=== PATIENT | female | born 1970 | race Two or more races ===

== ENCOUNTER 2018-02-28 22:00 | Inpatient (IN) | payer SELFPAY ==
[~2018-02-28] VITALS: Ht 154.9 cm; Wt 69.8 kg
[2018-02-28] MEDS ORDERED: cloNIDine HCL 0.1 MG TAB PO ONE (23:15)
[2018-03-01] MEDS ORDERED: ASPirin 81 mg TAB PO ONE
[2018-03-01 00:42] LABS: Eosinophils % (auto) 1.6 % (0.0-7.0); Hematocrit 41.3 % (36.0-46.0); Hemoglobin 13.6 g/dL (12.2-16.2); Lymphocytes % (auto) 23.6 % (10.0-50.0); Mean Corpuscular Volume 82.3 fL (80.0-100.0); Monocytes % (auto) 9.2 % (0.0-12.0); Neutrophils % (auto) 64.6 % (37.0-80.0); Nucleated Red Blood Cells % 0.1 %; Red Blood Cells 5.01 10^6/uL (4.0-5.20); White Blood Cell 6.2 10^3/uL (4.4-10.8)
[2018-03-01 00:43] LABS: Mean Corpuscular Hemoglobin 27.1 pg (28.0-32.0); Mean Corpuscular Hgb Conc. 32.9 g/dL (32.0-36.0); Platelet Count (auto) 132 10^3/uL (140-450)
[2018-03-01 00:44] LABS: Basophils # (auto) 0.1 uL; Eosinophils # (auto) 0.1 uL; Lymphocytes # (auto) 1.5 uL; Monocytes # (auto) 0.6 uL
[2018-03-01 00:45] LABS: Alanine Aminotransferase 19 U/L (13-56); Alkaline Phosphatase 109 U/L (45-117); Anion Gap 7 (5-15); Aspartate Aminotransferase 19 U/L (15-37); BUN/Creatinine Ratio 12.5; Blood Urea Nitrogen 10 mg/dL (7-18); Calcium 8.6 mg/dL (8.5-10.1); Carbon Dioxide 26 mmol/L (21-32); Chloride 107 mmol/L (98-107); GFR African American 98 mL/min; GFR Non-African American 81 mL/min; Glucose 125 mg/dL (74-106); Potassium 3.7 mmol/L (3.5-5.1); Sodium 140 mmol/L (136-145)
[2018-03-01 00:46] LABS: Bilirubin, Total 0.3 mg/dL (0.2-1.0); Total Protein 7.1 g/dL (6.4-8.2)
[2018-03-01 00:47] LABS: INR 0.95 (0.9-1.15); Partial Thromboplastin Time 25.9 sec (22.64-33.71); Prothrombin Time 10.4 sec (9.37-12.3)
[2018-03-01] MEDS ORDERED: LABETALOL HCL 5 MG/ML ML 20ML VIAL IV PRN ×2 (03:15→15:00)
[2018-03-01] MEDS ORDERED: ONDANSETRON HCL 4 MG/2 ML VIAL IV PRN (03:15)
[2018-03-01] MEDS ORDERED: MORPHINE SULFATE 8mg/ml INJ SDV IV PRN ×2 (03:15→05:45)
[2018-03-01] MEDS ORDERED: ACETAMINOPHEN 500 MG TAB PO PRN (03:15)
[2018-03-01 05:27] LABS: Basophils # (auto) 0.1 uL; Basophils % (auto) 1.2 % (0.0-2.0); Eosinophils # (auto) 0.1 uL; Eosinophils % (auto) 1.8 % (0.0-7.0); Hematocrit 38.9 % (36.0-46.0); Hemoglobin 13.3 g/dL (12.2-16.2); Lymphocytes # (auto) 1.5 uL; Lymphocytes % (auto) 23.6 % (10.0-50.0); Mean Corpuscular Hemoglobin 27.8 pg (28.0-32.0); Mean Corpuscular Hgb Conc. 34.1 g/dL (32.0-36.0); Mean Corpuscular Volume 81.6 fL (80.0-100.0); Monocytes # (auto) 0.8 uL; Monocytes % (auto) 12.4 % (0.0-12.0); Neutrophils # (auto) 3.8 uL; Platelet Count (auto) 119 10^3/uL (140-450); Red Blood Cells 4.77 10^6/uL (4.0-5.20); Red Cell Distribution Width 15.6 % (11.8-14.3); White Blood Cell 6.2 10^3/uL (4.4-10.8)
[2018-03-01] MEDS ORDERED: NITROGLYCERIN 0.4 MG SL TAB SL PRN (05:45)
[2018-03-01 05:46] LABS: Potassium 3.9 mmol/L (3.5-5.1)
[2018-03-01 05:53] LABS: BUN/Creatinine Ratio 15.9; Calcium 8.6 mg/dL (8.5-10.1)
[2018-03-01 05:55] LABS: Cholesterol 187 mg/dL (< 200); HDL Cholesterol 39 mg/dL (40-59); LDL Cholesterol 140 mg/dL (< 100); Triglycerides 112 mg/dL (< 150)
[2018-03-01 08:52] VITALS: BP 127/86
[2018-03-01 09:02] VITALS: BP 127/86
[2018-03-01] MEDS: ASPirin 81 mg TAB PO SCH (09:59)
[2018-03-01] MEDS: ENOXAPARIN SOD 40 MG/0.4 ML SYRINGE SC SCH (09:59)
[2018-03-01] MEDS ORDERED: ENOXAPARIN SOD 30 MG/0.3 ML SYRINGE SC SCH (10:00)
[2018-03-01] MEDS ORDERED: ASPirin 81 mg TAB PO SCH (10:00)
[2018-03-01 12:42] VITALS: BP 160/94
[2018-03-01] MEDS ORDERED: LORazepam 2MG/ML-1ML VIAL IV ONE (14:00)
[2018-03-01] MEDS ORDERED: BENA20TA14 PO (14:23)
[2018-03-01] MEDS ORDERED: LISINOPRIL 20 MG TAB PO ONE (15:00)
[2018-03-01 17:01] VITALS: BP 158/79
[2018-03-01] MEDS: ATORVASTATIN 20 MG TAB PO SCH (21:22)
[2018-03-01 22:00] VITALS: BP 157/82
[2018-03-02 05:00] VITALS: BP 129/86
[2018-03-02 05:53] LABS: Basophils # (auto) 0 uL; Basophils % (auto) 0.5 % (0.0-2.0); Eosinophils # (auto) 0.1 uL; Eosinophils % (auto) 1.4 % (0.0-7.0); Hematocrit 41.5 % (36.0-46.0); Hemoglobin 13.7 g/dL (12.2-16.2); Lymphocytes # (auto) 1.5 uL; Lymphocytes % (auto) 24.6 % (10.0-50.0); Mean Corpuscular Hgb Conc. 32.9 g/dL (32.0-36.0); Mean Corpuscular Volume 81.9 fL (80.0-100.0); Monocytes # (auto) 0.5 uL; Monocytes % (auto) 8.6 % (0.0-12.0); Neutrophils # (auto) 3.9 uL; Neutrophils % (auto) 64.9 % (37.0-80.0); Nucleated Red Blood Cells % 0.1 %; Platelet Count (auto) 142 10^3/uL (140-450); Red Blood Cells 5.07 10^6/uL (4.0-5.20); Red Cell Distribution Width 15.4 % (11.8-14.3); White Blood Cell 6.1 10^3/uL (4.4-10.8)
[2018-03-02 06:00] VITALS: BP 158/95
[2018-03-02 06:14] LABS: BUN/Creatinine Ratio 13.8; Calcium 8.7 mg/dL (8.5-10.1); Magnesium 2.2 mg/dL (1.6-2.6); Potassium 3.7 mmol/L (3.5-5.1)
[2018-03-02 06:38] LABS: Urine Bacteria NONE SEEN /hpf (None Seen); Urine Blood Negative /uL (Negative); Urine Mucus FEW (None Seen); Urine Specific Gravity 1.021 (1.001-1.035); Urine WBC 2 /hpf (0 - 5)
[2018-03-02 09:00] VITALS: BP 158/95
[2018-03-02] MEDS: ASPirin 81 mg TAB PO SCH (09:22)
[2018-03-02] MEDS: LISINOPRIL 20 MG TAB PO SCH (09:23)
[2018-03-02] MEDS: ENOXAPARIN SOD 40 MG/0.4 ML SYRINGE SC SCH (09:49)
[2018-03-02] MEDS: amLODIPine BESYLATE 5 MG TAB PO SCH (11:57)
[2018-03-02 13:00] VITALS: BP 155/92
[2018-03-02 17:00] VITALS: BP 138/77
[2018-03-02 22:13] VITALS: BP 149/92
[2018-03-02] MEDS: ATORVASTATIN 20 MG TAB PO SCH (22:21)
[2018-03-03 05:30] VITALS: BP 137/87
[2018-03-03 08:55] VITALS: BP 145/82
[2018-03-03] MEDS: amLODIPine BESYLATE 5 MG TAB PO SCH (09:53)
[2018-03-03] MEDS: ASPirin 81 mg TAB PO SCH (09:53)
[2018-03-03] MEDS: LISINOPRIL 20 MG TAB PO SCH (09:54)
[2018-03-03] MEDS: ENOXAPARIN SOD 40 MG/0.4 ML SYRINGE SC SCH (09:54)
[2018-03-03 13:00] VITALS: BP 149/79
[2018-03-03 16:52] VITALS: BP 149/82
[2018-03-03 17:10] VITALS: BP 145/82
== END 2018-03-03 18:25 | disposition home or self-care (01) | DRG 65 ==
LOC: ER 22:00 → TELE 22:01 → TELE-WESTW 03-01 07:41
PROVIDERS: ADMIT Nurse Practitioner Family; ATTEND Internal Medicine
DX: I63.9 Cerebral infarction, unspecified (principal); G81.94 Hemiplegia, unspecified affecting left nondominant side; E78.5 Hyperlipidemia, unspecified; I10 Essential (primary) hypertension; Z91.14 Patient's other noncompliance with medication regimen
CPT/HCPCS: 36415; 70450; 70551; 80048; 80053; 80061; 81001; 83735; 84443; 84484; 85025; 85610; 85730; 92610; 93005; 93306; 93886; 97116; 97530

== ENCOUNTER 2019-11-07 11:50 | Emergency (ER) | payer MEDICAID, OTHER ==
[~2019-11-07] VITALS: Ht 152.4 cm; Wt 71.7 kg
[~2019-11-07 11:50] MED LIST: BENA20TA14 PO
[2019-11-07] MEDS ORDERED: cloNIDine HCL 0.1 MG TAB ONE (12:06)
[2019-11-07] MEDS ORDERED: methylPREDNISolone SOD SUCC 125 MG/2 ML VL IV ONE (12:15)
[2019-11-07] MEDS ORDERED: ALBUTEROL SULF 2.5 MG/0.5ML(0.5%) NEB SOLN NEB ONE (12:15)
[2019-11-07] MEDS ORDERED: cloNIDine HCL 0.1 MG TAB PO ONE (12:15)
[2019-11-07] MEDS ORDERED: IPRATROPIUM BROM 0.5 MG/2.5ML INH SOL NEB ONE (12:15)
[2019-11-07] MEDS ORDERED: cefTRIAXone 1GM/50ML D5W 50 ML IV ONE (12:30)
[2019-11-07 12:43] LABS: Basophils # (auto) 0 uL; Basophils % (auto) 0.7 % (0.0-2.0); Eosinophils # (auto) 0.5 uL; Hemoglobin 14.5 g/dL (12.2-16.2); Lymphocytes # (auto) 1.5 uL; Neutrophils # (auto) 3.9 uL
[2019-11-07 12:45] LABS: Eosinophils % (auto) 8.2 % (0.0-7.0); Hematocrit 43.9 % (36.0-46.0); Lymphocytes % (auto) 22.5 % (10.0-50.0); Mean Corpuscular Hemoglobin 26.9 pg (28.0-32.0); Mean Corpuscular Hgb Conc. 33.1 g/dL (32.0-36.0); Mean Corpuscular Volume 81.3 fL (80.0-100.0); Monocytes # (auto) 0.6 uL; Monocytes % (auto) 9.4 % (0.0-12.0); Neutrophils % (auto) 59.2 % (37.0-80.0); Nucleated Red Blood Cells % 0.1 %; Platelet Count (auto) 151 10^3/uL (140-450); Red Blood Cells 5.41 10^6/uL (4.0-5.20); White Blood Cell 6.6 10^3/uL (4.4-10.8)
[2019-11-07 12:49] VITALS: BP 141/87
[2019-11-07 13:02] LABS: Albumin 2.9 g/dL (3.4-5.0); Anion Gap 2 (5-15); Blood Urea Nitrogen 13 mg/dL (7-18); Calcium 8.9 mg/dL (8.5-10.1); Carbon Dioxide 30 mmol/L (21-32); Chloride 112 mmol/L (98-107); GFR African American 131 mL/min; GFR Non-African American 108 mL/min; Glucose 86 mg/dL (74-106); Potassium 4.1 mmol/L (3.5-5.1); Sodium 144 mmol/L (136-145)
[2019-11-07 13:07] LABS: Alanine Aminotransferase 25 U/L (13-56); Alkaline Phosphatase 152 U/L (45-117); Aspartate Aminotransferase 21 U/L (15-37); Bilirubin, Total 0.3 mg/dL (0.2-1.0); Total Protein 7.3 g/dL (6.4-8.2)
[2019-11-07] MEDS ORDERED: IOHEXOL 350 MG/ML 100ML IJ ONE (13:13)
== END 2019-11-07 15:17 | disposition home or self-care (01) ==
LOC: ER 11:50
DX: R06.02 Shortness of breath (principal); R07.2 Precordial pain; I10 Essential (primary) hypertension; Z86.73 Personal history of transient ischemic attack (TIA), and cerebral infarction without residual deficits; E78.5 Hyperlipidemia, unspecified
CPT/HCPCS: 36415; 71046; 71275; 80053; 83605; 84484; 85025; 87040; 93005; 94640; 96365; 96375; 99284; J0696; J2930; J7611; J7644; Q9967

== ENCOUNTER 2023-08-17 15:10 | Inpatient (IN) | payer MEDICAID ==
[~2023-08-17] VITALS: Ht 154.9 cm; Wt 70.0 kg
[~2023-08-17 15:10] MED LIST changes: +BENA-36 PO; -BENA20TA14 PO
[2023-08-17] MEDS ORDERED: LABETALOL HCL 5 MG/ML 4ML SYRINGE IV ONE ×3 (15:30→17:45)
[2023-08-17 16:00] VITALS: PULSE 83; RESP 17; O2SAT 96
[2023-08-17 17:06] LABS: Basophils # (auto) 0.1 10 ^3/uL (0-0.2); Basophils % (auto) 0.9 % (0.0-2.0); Eosinophils # (auto) 0.1 10 ^3/uL (0-0.8); Eosinophils % (auto) 1.3 % (0.0-7.0); Hematocrit 40.4 % (36.0-46.0); Hemoglobin 13.5 g/dL (12.2-16.2); Lymphocytes # (auto) 1.1 10 ^3/uL (0.4-5.4); Lymphocytes % (auto) 13.3 % (10.0-50.0); Mean Corpuscular Hemoglobin 27.9 pg (28.0-32.0); Mean Corpuscular Hgb Conc. 33.4 g/dL (32.0-36.0); Mean Corpuscular Volume 83.4 fL (80.0-100.0); Monocytes # (auto) 0.5 10 ^3/uL (0-1.3); Monocytes % (auto) 5.9 % (0.0-12.0); Neutrophils # (auto) 6.5 10 ^3/uL (1.6-8.6); Neutrophils % (auto) 78.6 % (37.0-80.0); Red Blood Cells 4.85 10^6/uL (4.0-5.20); Red Cell Distribution Width 14.9 % (11.8-14.3); White Blood Cell 8.3 10^3/uL (4.4-10.8)
[2023-08-17 17:18] LABS: Alanine Aminotransferase 15 U/L (7-40); Albumin 3.3 g/dL (3.2-4.8); Alkaline Phosphatase 130 U/L (46-116); Anion Gap 5 (5-15); Aspartate Aminotransferase 23 U/L (13-40); BUN/Creatinine Ratio 19.5 (10.0-20.0); Blood Urea Nitrogen 25 mg/dL (9-23); Calcium 8.8 mg/dL (8.7-10.4); Carbon Dioxide 29 mmol/L (20-30); Chloride 106 mmol/L (98-107); Glucose 156 mg/dL (74-106); Magnesium 2.1 mg/dL (1.6-2.6); Potassium 4.3 mmol/L (3.5-5.1); Sodium 140 mmol/L (136-145)
[2023-08-17 17:19] LABS: Bilirubin, Total 0.5 mg/dL (0.2-1.0); Total Protein 5.7 g/dL (5.7-8.2)
[2023-08-17 17:22] LABS: INR 0.98 (0.9-1.15); Partial Thromboplastin Time 27.4 SEC (24.5-34.5); Prothrombin Time 10.3 sec (9.3-11.8)
[2023-08-17 18:11] LABS: Urine Bacteria NONE SEEN /hpf (None Seen); Urine Blood TRACE /uL (Negative); Urine Clarity Clear (Clear); Urine Color Colorless (Yellow); Urine Protein, UAD 3+ (Negative); Urine Specific Gravity 1.009 (1.001-1.035); Urine Urobilinogen Normal (Negative); Urine WBC 44 /hpf (0 - 5); Urine pH 6.5 (5.0-8.0)
[2023-08-17 19:30] VITALS: PULSE 67; RESP 17; O2SAT 96
[2023-08-17] MEDS ORDERED: hydrALAZINE HCL 20 MG/ML VL IV ONE (19:30)
[2023-08-17] MEDS ORDERED: cefTRIAXone 1GM/50ML D5W 50 ML IV ONE (21:30)
[2023-08-17] MEDS ORDERED: DOCUSATE SOD 100 MG CAP PO PRN (21:30)
[2023-08-17] MEDS ORDERED: MORPHINE SULFATE INJ 2 MG/ml SYRG IV PRN ×2 (21:30)
[2023-08-17] MEDS ORDERED: ONDANSETRON HCL 4 MG/2 ML VIAL IV PRN (21:30)
[2023-08-17] MEDS ORDERED: ACETAMINOPHEN 325 MG TAB PO PRN (21:30)
[2023-08-17] MEDS ORDERED: NITROGLYCERIN 0.4 MG SL TAB SL PRN (21:30)
[2023-08-17] MEDS ORDERED: HYDROcodone-ACET 5/325MG TAB PO PRN (21:30)
[2023-08-17] MEDS ORDERED: ATOR40TA52 PO (21:35)
[2023-08-17] MEDS ORDERED: MONT-8 PO (21:35)
[2023-08-17] MEDS ORDERED: LEVALBUTEROL HCL 1.25 MG/3 ML NEB NEB SCH (22:00)
[2023-08-17] MEDS ORDERED: IPRATROPIUM BROM 0.5 MG/2.5ML INH SOL NEB ONE (22:00)
[2023-08-17] MEDS ORDERED: LEVALBUTEROL HCL 1.25 MG/3 ML NEB NEB PRN (22:00)
[2023-08-17] MEDS: ATORVASTATIN 20 MG TAB PO SCH (22:00)
[2023-08-17] MEDS: MONTELUKAST SODIUM 10 MG TAB PO SCH (22:00)
[2023-08-17] MEDS ORDERED: IPRATROPIUM BROM 0.5 MG/2.5ML INH SOL NEB PRN (22:00)
[2023-08-17] MEDS ORDERED: IPRATROPIUM BROM 0.5 MG/2.5ML INH SOL ONE (22:09)
[2023-08-17] MEDS ORDERED: LEVALBUTEROL HCL 1.25 MG/3 ML NEB ONE (22:09)
[2023-08-17] MEDS ORDERED: LEVALBUTEROL HCL 1.25 MG/3 ML NEB NEB ONE (22:45)
[2023-08-17 23:33] VITALS: PULSE 77; RESP 16; O2SAT 94
[2023-08-18] MEDS: SODIUM CHLORIDE 0.9% 1,000 ML IV SCH ×4 (00:13→14:40)
[2023-08-18 01:10] VITALS: BP 112/60; PULSE 77; RESP 16; TEMP 97.8; O2SAT 94
[2023-08-18] MEDS: LABETALOL HCL 5 MG/ML 4ML SYRINGE IV PRN ×3 (06:15→22:24)
[2023-08-18 06:54] LABS: Alanine Aminotransferase 12 U/L (7-40); Alkaline Phosphatase 98 U/L (46-116); Anion Gap 6 (5-15); Aspartate Aminotransferase 15 U/L (13-40); BUN/Creatinine Ratio 16.7 (10.0-20.0); Blood Urea Nitrogen 19 mg/dL (9-23); Calcium 8.6 mg/dL (8.5-10.1); Carbon Dioxide 27 mmol/L (20-30); Chloride 108 mmol/L (98-107); Cholesterol 177 mg/dL (< 200); Glucose 95 mg/dL (74-106); HDL Cholesterol 42 mg/dL (40-59); LDL Cholesterol 107 mg/dL (< 100); Potassium 3.8 mmol/L (3.5-5.1); Sodium 141 mmol/L (136-145); Triglycerides 123 mg/dL (< 150)
[2023-08-18 06:55] LABS: Bilirubin, Total 0.6 mg/dL (0.2-1.0); Total Protein 5.6 g/dL (5.7-8.2)
[2023-08-18 07:03] LABS: Basophils # (auto) 0.1 10 ^3/uL (0-0.2); Eosinophils # (auto) 0.2 10 ^3/uL (0-0.8); Eosinophils % (auto) 2.1 % (0.0-7.0); Hematocrit 38.6 % (36.0-46.0); Lymphocytes # (auto) 1.2 10 ^3/uL (0.4-5.4); Lymphocytes % (auto) 17.2 % (10.0-50.0); Mean Corpuscular Hemoglobin 27.8 pg (28.0-32.0); Mean Corpuscular Hgb Conc. 33.6 g/dL (32.0-36.0); Mean Corpuscular Volume 82.7 fL (80.0-100.0); Monocytes # (auto) 0.6 10 ^3/uL (0-1.3); Monocytes % (auto) 8.4 % (0.0-12.0); Neutrophils # (auto) 5.1 10 ^3/uL (1.6-8.6); Neutrophils % (auto) 71.3 % (37.0-80.0); Nucleated Red Blood Cells % 0.1 %; Red Blood Cells 4.67 10^6/uL (4.0-5.20); White Blood Cell 7.2 10^3/uL (4.4-10.8)
[2023-08-18 08:00] VITALS: PULSE 66; RESP 18; O2SAT 96
[2023-08-18 08:15] VITALS: O2SAT 94
[2023-08-18] MEDS: cefTRIAXone 1GM/50ML D5W 50 ML IV SCH (09:26)
[2023-08-18] MEDS: ENOXAPARIN SOD 30 MG/0.3 ML SYRINGE SC SCH (09:49)
[2023-08-18] MEDS: PANTOPRAZOLE 40 MG TAB PO SCH (09:49)
[2023-08-18] MEDS ORDERED: BENAZEPRIL HCL 10 MG TAB PO ONE (10:15)
[2023-08-18] MEDS ORDERED: NIFEdipine ER 30 MG TAB PO ONE (10:45)
[2023-08-18 19:55] VITALS: PULSE 73; RESP 17; O2SAT 96
[2023-08-18 20:20] VITALS: O2SAT 97
[2023-08-18] MEDS: MONTELUKAST SODIUM 10 MG TAB PO SCH (21:31)
[2023-08-18] MEDS: ATORVASTATIN 20 MG TAB PO SCH (21:32)
[2023-08-19] VITALS (8 sets, daily range): BP systolic 141–154; BP diastolic 69–93; PULSE 74–95; RESP 17–19; TEMP 98.2–98.6; O2SAT 94–97
[2023-08-19] MEDS ORDERED: hydrALAZINE HCL 20 MG/ML VL IV PRN (01:00)
[2023-08-19] MEDS: LABETALOL HCL 5 MG/ML 4ML SYRINGE IV PRN (06:52)
[2023-08-19] MEDS: cefTRIAXone 1GM/50ML D5W 50 ML IV SCH (08:49)
[2023-08-19] MEDS: PANTOPRAZOLE 40 MG TAB PO SCH (08:50)
[2023-08-19] MEDS: ENOXAPARIN SOD 30 MG/0.3 ML SYRINGE SC SCH (08:50)
[2023-08-19] MEDS ORDERED: NIFEdipine ER 30 MG TAB PO SCH (10:00)
[2023-08-19] MEDS ORDERED: BENAZEPRIL HCL 10 MG TAB PO SCH (10:00)
[2023-08-19] MEDS ORDERED: NIFE1TAB31 PO (13:31)
[2023-08-19] MEDS ORDERED: LEVO500T91 PO (13:33)
[2023-08-19] MEDS ORDERED: BENA-36 PO (13:58)
== END 2023-08-19 16:10 | disposition home or self-care (01) | DRG 199 ==
LOC: ER 15:10 → TELE 21:35 → TELE-WESTW 08-18 23:43
PROVIDERS: ADMIT Nurse Practitioner Family; ATTEND Internal Medicine
DX: I16.1 Hypertensive emergency (principal); N17.0 Acute kidney failure with tubular necrosis; N30.01 Acute cystitis with hematuria; E66.9 Obesity, unspecified; E78.5 Hyperlipidemia, unspecified; I10 Essential (primary) hypertension; J45.909 Unspecified asthma, uncomplicated; Z86.73 Personal history of transient ischemic attack (TIA), and cerebral infarction without residual deficits; Z82.49 Family history of ischemic heart disease and other diseases of the circulatory system; Z91.199 Patient's noncompliance with other medical treatment and regimen due to unspecified reason; Z68.29 Body mass index [BMI] 29.0-29.9, adult
CPT/HCPCS: 36415; 70450; 71045; 80053; 80061; 81001; 83735; 83880; 84443; 84484; 85025; 85610; 85730; 87086; 93005; 93306; 94640; 96365; 96375; 96376; 99291; G0378; J0696; J3490

== ENCOUNTER 2024-09-11 16:22 | Inpatient (IN) | payer MEDICAID ==
[~2024-09-11] VITALS: Ht 152.4 cm; Wt 65.7 kg
[~2024-09-11 16:22] MED LIST changes: +ATOR40TA52 PO; +LEVO500T91 PO; +MONT-8 PO; +NIFE1TAB31 PO
--- NOTE | 2024-09-11 16:34 | ED.PDOC ---
HPI Comments HPI: HPI: Poor Historian. 54-year-old female sent from urgent care due to hypertensive episode with the associated chest pain and headache. Patient states she has been noticing her blood pressure has been elevated in the last two days greater than 200. She states compliance with the blood pressure medications. Patient complains of some mild left-sided chest discomfort and some generalized headaches with her elevated blood pressure. At urgent Care her systolic blood pressure was 223/115. Patient states she has been under a lot of stress and grief lately because she just. Her sister three days ago. I was told by urgent care provider Dr. Nina that patient refused all interventions and refused ambulance and was brought here by her through private vehicle. PMHx: HTN, CVA, HLD PSHx: Allergies: No Known Allergies Initial Vital Signs: BP: 220/123 HR: 81 Temp: 98.0F SpO2: 95% RR: 20 REVIEW OF SYSTEMS: CONSTITUTIONAL: Denies acute: fever, diaphoresis, chills, HEAD: Denies acute: , photophobia Eyes: Denies acute: Double vision, vision loss, eye pain, eye discharge. EARS: Denies acute: tinnitus, hearing loss, ear discharge, ear pain, THROAT: Denies acute: sore throat, swelling, difficulty swallowing , pain with swallowing, change in voice. NECK: Denies acute: neck pain, neck swelling, stiff neck. HEART: Denies acute : palpitations, LUNGS: Denies acute: , wheezing, cough, hemoptysis ABDOMEN: Denies acute: abdominal pain, Nausea, Vomiting, diarrhea, melena , hematemesis, hematochezia SKIN: Denies acute: rash, redness, lesions, itchiness. EXTREMITIES: Denies acute: calf pain, numbness, tingling, weakness, denies pain in extremity. Denies acute: Low back pain. Neuro: Denies acute: focal neurological deficit, motor or sensory focal neurological deficit, tremors, seizure like activity, confusion, dizziness, change in mental status, loss of bowel or bladder function, cauda equina like symptoms. : Denies acute: dysuria, hematuria, flank pain, increase in urinary frequency. PSYCH: Denies acute: hallucination, suicidal ideation, homicidal ideation. FEMALE: Denies acute: abnormal vaginal bleeding, foul odor, unusual discharge. PHYSICAL EXAM: General: Moderate acute distress, awake and alert. Head: normocephalic, atraumatic. Neck: supple, trachea is midline, no swelling. Throat: Normal phonation. Eyes:, no erythema, no purulent discharge, no proptosis, no icterus. Heart: regular rate, regular rhythm, no significant murmur appreciated. Lungs: no apparent respiratory distress, Able to speak in full sentences. No wheezing, no rhonchi, no crackles. No stridors Clear to auscultation bilaterally. Abdomen: non tender to palpation, non distended, soft, no guarding, no rebound, + bowel sounds. Neuro: Awake, Alert, oriented to name, self, situation, follows commands GCS=15. Speech is normal. Skin: no petechia, no purpura, no cyanosis, non-pale, not jaundice. Lower extremities: --no - Pitting edema no deformity, no focal swelling, no calf TTP. Makes eye contact. moves all four extremities. Ambulating in the ED independently. Time Seen by MD: 16:24 Primary Care Provider: Evi Reviewed Notes: Medications, Allergies Allergies: Coded Allergies: NO KNOWN ALLERGIES (Unverified , 02/28/18) Home Meds Active Scripts Benazepril Hcl (Benazepril Hcl) 20 Mg Tab, 1 TAB PO DAILY, #30 TAB 5 Refills Prov:JUSTO GALINDO MD 08/19/23 Levofloxacin Hemihydrate (LEVAQUIN 500 MG) 500 Mg Tab, 1 TAB PO DAILY, #7 TAB Prov:JUSTO GALINDO MD 08/19/23 Nifedipine (Nifedipine Er) 30 Mg Tab, 2 TAB PO DAILY, #60 TAB 3 Refills Prov:JUSTO GALINDO MD 08/19/23 Reported Medications Montelukast Sodium (MONTELUKAST SODIUM) 10 Mg Tab, 1 TAB PO HS 08/17/23 Atorvastatin Calcium (ATORVASTATIN CALCIUM) 40 Mg Tab, 1 TAB PO HS 08/17/23 Information Source: Patient Mode of Arrival: Ambulatory Past Medical History PAST MEDICAL HISTORY: CVA, High Lipids, HTN Surgical History: MANAGER PERIOPERATIVE History: No Pertinent MANAGER PERIOPERATIVE History Family History Family History: Reviewed,noncontributory to illness Social History Smoker: Non-Smoker Alcohol: Denies ETOH Use Drugs: Denies Drug Use Lives In: Home Was a procedure done? Was a procedure done?: No CP Differential Dx Differential Diagnosis: N/A Differential Diagnosis: Other (DDX include renal disease, thyroid disease, electrolyte abnormality, increased salt intake, medications non-compliance, undiagnosed HTN, Hypertensive crisis, hypertensive urgency., drug toxicity.) Differential Diagnosis: Other (Ddx include but not limitied to gastritis, musculoskeletal pain, radiculopathy, atypical chest pain, dissection, aneurysm, ACS, unstable angina, hiatal hernia, GERD, anxiety, costochondritis, PE, pne umothroax, neoplasm, cardiac ischemia, drug abuse, anemia.) X-Ray, Labs, Meds, VS Vital Signs Date Time Temp Pulse Resp B/P (MAP) Pulse Ox O2 Delivery O2 Flow Rate FiO2 09/11/24 18:21 134/92 09/11/24 17:47 134/92 09/11/24 17:47 80 134/92 09/11/24 17:47 134/92 09/11/24 17:45 80 18 134/18 (56) 99 09/11/24 17:35 180/98 09/11/24 17:25 76 18 194/104 (134) 98 09/11/24 16:53 77 18 96 Room Air* 0 21 09/11/24 16:53 98.0 77 18 206/96 (132) 96 98.0 09/11/24 16:52 206/96 09/11/24 16:35 77 09/11/24 16:34 98.0 86 20 188/111 (136) 97 Lab Test 09/11/24 18:11 09/11/24 17:19 09/11/24 17:00 Range/Units Troponin I High Sensitivity 8 8 </=34 ng/L White Blood Count 11.3 H 4.4-10.8 10^3/uL Red Blood Count 4.95 4.0-5.20 10^6/uL Hemoglobin 13.4 12.2-16.2 g/dL Hematocrit 41.3 36.0-46.0 % Mean Corpuscular Volume 83.4 80.0-100.0 fL Mean Corpuscular Hemoglobin 27.2 L 28.0-32.0 pg Mean Corpuscular Hemoglobin Concent 32.6 32.0-36.0 g/dL Red Cell Distribution Width 15.3 H 11.8-14.3 % Platelet Count 234 140-450 10^3/uL Mean Platelet Volume 7.7 6.9-10.8 fL Neutrophils (%) (Auto) 78.2 37.0-80.0 % Lymphocytes (%) (Auto) 13.0 10.0-50.0 % Monocytes (%) (Auto) 6.1 0.0-12.0 % Eosinophils (%) (Auto) 2.2 0.0-7.0 % Basophils (%) (Auto) 0.5 0.0-2.0 % Neutrophils # (Auto) 8.9 H 1.6-8.6 10 ^3/uL Lymphocytes # (Auto) 1.5 0.4-5.4 10 ^3/uL Monocytes # (Auto) 0.7 0-1.3 10 ^3/uL Eosinophils # (Auto) 0.2 0-0.8 10 ^3/uL Basophils # (Auto) 0.1 0-0.2 10 ^3/uL Nucleated Red Blood Cells 0.0 % Sodium Level 139 136-145 mmol/L Potassium Level 4.8 3.5-5.1 mmol/L Chloride Level 104 98-107 mmol/L Carbon Dioxide Level 30 20-31 mmol/L Anion Gap 5 5-15 Blood Urea Nitrogen 27 H 9-23 mg/dL Creatinine 1.50 H 0.550-1.02 mg/dL Glomerular Filtration Rate Calc 41 >90 mL/min BUN/Creatinine Ratio 18.0 10.0-20.0 Serum Glucose 103 74-106 mg/dL Lactic Acid Level 1.1 0.4-2.0 mmol/L Calcium Level 9.2 8.7-10.4 mg/dL Total Bilirubin 0.5 0.2-1.0 mg/dL Aspartate Amino Transferase (AST) 20 13-40 U/L Alanine Aminotransferase (ALT) 16 7-40 U/L Alkaline Phosphatase 128 H 46-116 U/L B-Type Natriuretic Peptide 46.11 0-100 pg/mL Total Protein 6.3 5.7-8.2 g/dL Albumin 3.5 3.2-4.8 g/dL Urine Color Colorless Yellow Urine Clarity Clear Clear Urine pH 7.0 5.0-9.0 Urine Specific [place] 1.003 1.001-1.035 Urine Protein 2+ H Negative Urine Ketones Negative Negative Urine Blood Trace H Negative /uL Urine Nitrite Negative Negative Urine Bilirubin Negative Negative Urine Urobilinogen Normal Negative mg/dL Urine Leukocyte Esterase 1+ Negative /uL Urine RBC 1 0 - 4 /hpf Urine WBC 5 0 - 5 /hpf Urine Squamous Epithelial Cells None seen <5 /hpf Urine Bacteria Few H None Seen /hpf Urine Glucose Normal Normal mg/dL Current Medications Medications (Trade) Dose Ordered Sig/Valeriy Route Start Time Stop Time Status Last Admin Nitroglycerin (Ntrostat Sublingual) 0.4 mg ONCE ONCE SL 09/11/24 16:30 09/11/24 16:46 DC 09/11/24 16:52 Aspirin 325 mg ONCE ONCE PO 09/11/24 16:30 09/11/24 16:46 DC 09/11/24 16:52 Nitroglycerin (Ntrostat Sublingual) 0.4 mg ONCE ONCE SL 09/11/24 17:45 09/11/24 17:46 DC 09/11/24 17:35 [place] [id number] Ph: [phone] DIAGNOSTIC IMAGING Diagnostic Imaging Report : [id number] Signed PATIENT: NUSRAT CASTILLO ACCT: [id number] UNIT: [id number] : 1970 LOC: ER ROOM / BED: / AGE / SEX: 54 / F ADM STATUS: REG ER SERVICE 28 ORDERING PHYSICIAN: VIJAYA MCLEOD DO PROCEDURE(s): HWOCT - HEAD WITHOUT CONTRAST REASON: HTN, CARRILLO ORDER NUMBER(s): [id number], ACCESSION NUMBER(s): [id number] EXAM: CT Head Without Intravenous Contrast CLINICAL INDICATION: HTN, CARRILLO TECHNIQUE: Axial computed tomography images of the head/brain without intravenous contrast. This CT exam was performed using one or more of the following dose reduction techniques: automated exposure control, adjustment of the mA and/or kV according to patient size, and/or use of iterative reconstruction technique. RADIATION DOSE: CTDlvol= 51.5 mGy, DLP= 826.02 mGy-cm COMPARISON: CT HEAD WITHOUT CONTRAST on DOS: 08/17/23, CT ANGIO CHEST CONTRAST on DOS: 11/07/19 FINDINGS: BRAIN AND EXTRA-AXIAL SPACES: Unremarkable. No significant white matter disease. No acute intracranial hemorrhage, midline shift or mass effect. BONES/JOINTS: Unremarkable. No acute fracture. SOFT TISSUES: Unremarkable. SINUSES: Unremarkable as visualized. No acute sinusitis. MASTOID AIR CELLS: Unremarkable as visualized. No mastoid effusion. OTHER FINDINGS: . . . IMPRESSION: 1. No acute intracranial hemorrhage, midline shift or mass effect. 2. No significant change from the prior exam. HS:Y ATED BY: SHERRILL LEYVA MD DICTATED DATE/TIME: 09/11/241704 SIGNED BY: SHERRILL LEYVA MD SIGNED DATE/TIME: 09/11/241704 [place] [address] Ph: [phone] DIAGNOSTIC IMAGING Diagnostic Imaging Report : [id number] Signed PATIENT: NUSRAT CASTILLO ACCT: [id number] UNIT: [id number] : 1970 LOC: ER ROOM / BED: / AGE / SEX: 54 / F ADM STATUS: REG ER SERVICE 28 ORDERING PHYSICIAN: VIJAYA MCLEOD DO PROCEDURE(s): CXRP - CHEST PORTABLE REASON: cp ORDER NUMBER(s): [id number], ACCESSION NUMBER(s): [id number] EXAM: XR Chest, 1 View CLINICAL INDICATION: cp TECHNIQUE: Frontal view of the chest. COMPARISON: XY CHEST PORTABLE on DOS: 08/17/23 FINDINGS: LUNGS AND PLEURAL SPACES: Unremarkable. No consolidation. No pneumothorax. HEART: Unremarkable. No cardiomegaly. MEDIASTINUM: Unremarkable. Normal mediastinal contour. BONES/JOINTS: Unremarkable. No acute fracture. OTHER FINDINGS: . . . IMPRESSION: No acute cardiopulmonary process. HS:Y ATED BY: SHERRILL LEYVA MD DICTATED DATE/TIME: 09/11/241700 SIGNED BY: SHERRILL LEYVA MD SIGNED DATE/TIME: 09/11/241700 Time of 1ST Reevaluation: 16:54 Reevaluation 1ST: Unchanged Time of 2ND Reevaluation: 19:40 Reevaluation 2ND: Improved Patient Education/Counseling: Diagnosis, Treatment Family Education/Counseling: Diagnosis, Treatment Comments Patient presented with the above HPI.---cardiac and hypertension crisis---workup was initiated. patient was found with the above mentioned diagnosis. Patient was given: Nitroglycerin and aspirin, Rocephin for suspected UTI Patient ED course and VS have been stabilized. Patient has been reassessed in the ED and remained in a stable condition. Pertinent incidental findings were discussed with the patient and/or family. Patient/family voices understanding and is agreeable with plan. Patient has been observed in the ED adequate length of time to insure improvement/stability. patient was admitted to the medicine team for further evaluation and treatment of their presentation. Rule out ACS, better blood pressure control, All the reports of any imaging studies that were ordered by myself were reviewed by myself. Departure 1 Departure Time of Disposition: 17:49 Impression: Primary Impression: Hypertensive crisis Additional Impressions: Chest pain UTI (urinary tract infection) Disposition: ADMITTED INPATIENT Admit to: Tele Condition: Guarded Discharged With: Self Critical Care Note Critical Care Time?: Yes (35 min-critical care time only) Heart Score Heart Score: Heart Score Response (Comments) Value History Moderate Suspicious 1 EKG Normal 0 Age 45-64 1 Risk Factors 1 or 2 risk factors 1 Troponin Normal limit 0 Total 3 I personally scribed for VIJAYA MCLEOD DO ([email or web address]) on 09/11/24 at 16:34. Electronically submitted by Arnie Barbour ([email or web address]). I personally scribed for VIJAYA MCLEOD DO ([email or web address]) on 09/11/24 at 16:42. Electronically submitted by Arnie Barbour ([email or web address]). I personally scribed for VIJAYA MCLEOD DO ([email or web address]) on 09/11/24 at 17:58. Electronically submitted by Arnie Barbour ([email or web address]). VIJAYA MCLEOD DO Sep 11, 2024 16:34
[2024-09-11] MEDS: NITROGLYCERIN 0.4 MG SL TAB SL ONE ×3 (16:52→17:47)
[2024-09-11] MEDS: ASPirin 325 MG TAB PO ONE (16:52)
[2024-09-11 16:53] VITALS: PULSE 77; RESP 18; O2SAT 96
--- NOTE | 2024-09-11 17:04 | DVH ---
EXAM: XR Chest, 1 View CLINICAL INDICATION: cp TECHNIQUE: Frontal view of the chest. COMPARISON: XY CHEST PORTABLE on DOS: 08/17/23 FINDINGS: LUNGS AND PLEURAL SPACES: Unremarkable. No consolidation. No pneumothorax. HEART: Unremarkable. No cardiomegaly. MEDIASTINUM: Unremarkable. Normal mediastinal contour. BONES/JOINTS: Unremarkable. No acute fracture. OTHER FINDINGS: . . . IMPRESSION: No acute cardiopulmonary process. HS:Y
--- NOTE | 2024-09-11 17:07 | DVH ---
EXAM: CT Head Without Intravenous Contrast CLINICAL INDICATION: HTN, CARRILLO TECHNIQUE: Axial computed tomography images of the head/brain without intravenous contrast. This CT exam was performed using one or more of the following dose reduction techniques: automated exposure control, adjustment of the mA and/or kV according to patient size, and/or use of iterative reconstru ction technique. RADIATION DOSE: CTDlvol= 51.5 mGy, DLP= 826.02 mGy-cm COMPARISON: CT HEAD WITHOUT CONTRAST on DOS: 08/17/23, CT ANGIO CHEST CONTRAST on DOS: 11/07/19 FINDINGS: BRAIN AND EXTRA-AXIAL SPACES: Unremarkable. No significant white matter disease. No acute intracra nial hemorrhage, midline shift or mass effect. BONES/JOINTS: Unremarkable. No acute fracture. SOFT TISSUES: Unremarkable. SINUSES: Unremarkable as visualized. No acute sinusitis. MASTOID AIR CELLS: Unremarkable as visualized. No mastoid effusion. OTHER FINDINGS: . . . IMPRESSION: 1. No acute intracranial hemorrhage, midline shift or mass effect. 2. No significant change from the prior exam. HS:Y
[2024-09-11 17:38] LABS: Basophils # (auto) 0.1 10 ^3/uL (0-0.2); Basophils % (auto) 0.5 % (0.0-2.0); Eosinophils # (auto) 0.2 10 ^3/uL (0-0.8); Eosinophils % (auto) 2.2 % (0.0-7.0); Hematocrit 41.3 % (36.0-46.0); Hemoglobin 13.4 g/dL (12.2-16.2); Lymphocytes # (auto) 1.5 10 ^3/uL (0.4-5.4); Mean Corpuscular Hemoglobin 27.2 pg (28.0-32.0); Mean Corpuscular Hgb Conc. 32.6 g/dL (32.0-36.0); Mean Corpuscular Volume 83.4 fL (80.0-100.0); Monocytes # (auto) 0.7 10 ^3/uL (0-1.3); Monocytes % (auto) 6.1 % (0.0-12.0); Neutrophils # (auto) 8.9 10 ^3/uL (1.6-8.6); Neutrophils % (auto) 78.2 % (37.0-80.0); Platelet Count (auto) 234 10^3/uL (140-450); Red Blood Cells 4.95 10^6/uL (4.0-5.20); Red Cell Distribution Width 15.3 % (11.8-14.3); White Blood Cell 11.3 10^3/uL (4.4-10.8)
[2024-09-11 17:45] LABS: Urine Bacteria FEW /hpf (None Seen); Urine Blood TRACE /uL (Negative); Urine Clarity Clear (Clear); Urine Color Colorless (Yellow); Urine Protein, UAD 2+ (Negative); Urine Specific Gravity 1.003 (1.001-1.035); Urine Urobilinogen Normal (Negative); Urine WBC 5 /hpf (0 - 5)
[2024-09-11] MEDS: LABETALOL HCL 20 MG/4 ML VL IV ONE ×2 (17:47→22:00)
[2024-09-11 17:53] LABS: Alanine Aminotransferase 16 U/L (7-40); Albumin 3.5 g/dL (3.2-4.8); Alkaline Phosphatase 128 U/L (46-116); Anion Gap 5 (5-15); Aspartate Aminotransferase 20 U/L (13-40); Bilirubin, Total 0.5 mg/dL (0.2-1.0); Blood Urea Nitrogen 27 mg/dL (9-23); Calcium 9.2 mg/dL (8.7-10.4); Carbon Dioxide 30 mmol/L (20-31); Chloride 104 mmol/L (98-107); Glucose 103 mg/dL (74-106); Potassium 4.8 mmol/L (3.5-5.1); Sodium 139 mmol/L (136-145); Total Protein 6.3 g/dL (5.7-8.2)
[2024-09-11] MEDS: cefTRIAXone 1GM/50ML D5W 50 ML IV ONE (19:45)
[2024-09-11 21:15] VITALS: PULSE 67; RESP 20; O2SAT 98
[2024-09-11] MEDS ORDERED: ONDANSETRON HCL 4 MG/2 ML VIAL IV PRN (21:45)
[2024-09-11] MEDS ORDERED: LABETALOL HCL 20 MG/4 ML VL IV PRN (21:45)
[2024-09-11] MEDS ORDERED: MORPHINE SULFATE INJ 2 MG/ml SYRG IV PRN ×2 (21:45)
[2024-09-11] MEDS ORDERED: NITROGLYCERIN 0.4 MG SL TAB SL PRN (21:45)
[2024-09-11] MEDS ORDERED: ACETAMINOPHEN 325 MG TAB PO PRN (21:45)
[2024-09-11] MEDS: SODIUM CHLOR 0.9% PF (SALINE LOCK) 10ML VIAL/SYR IV SCH (22:08)
[2024-09-11] MEDS: ENOXAPARIN SOD 40 MG/0.4 ML SYRINGE SC SCH (22:29)
--- NOTE | 2024-09-11 23:41 | DVHHPRES ---
History of Present Illness Resident Creating Document: DIEUDONNE DEE RESIDENT History of Present Illness NUSRAT CASTILLO is 54 years old female with a PMH of HTN, CVA, HLD, asthma it to the ED with the chief complaints of high blood pressure since 2 days prior to admission. Patient reported she has been noticed that her blood pressure is more than 200, associated with severe headache and chest pressure which is substernal to left side with a nonradiating, nothing made it worse or better, prompted her to visit ED. patient had recent stressors, she lost her sister on Monday, lack of sleep, with a stressful events, despite taking antihypertensive medications still her blood pressure is very high. Patient went to urgent care, advised to go to ED. my assessment patient denies fever, nausea, vomiting, difficulty breathing, abdominal pain, palpitations, diaphoresis and other associated symptoms. Past Medical History HTN, CVA, HLD, asthma, prediabetes mellitus Past Surgical History Family History: None Past Social History Lives with . Denies smoking, alcohol and other drug abuse Review of Systems Constitutional: Yes: Other (Headache) Eyes: No: Pain, Vision change, Conjunctivae inflammation, Eyelid inflammation, Other, Redness Respiratory: SOB with excertion Cardiovascular: Chest Pain Gastrointestinal: No: Nausea, Vomiting, Abdominal Pain, Diarrhea, Constipation, Melena, Hematochezia, Other Genitourinary: No Dysuria, No Frequency, No Incontinence, No Hematuria, No Retention, No Other Musculoskeletal: No: other, neck pain, shoulder pain, arm pain, back pain, hand pain, leg pain, foot pain Skin: No: Rash, Lesions, Jaundice, Bruising, Other Neurological: No: Weakness, Numbness, Incoordination, Change in speech, Confusion, Seizures, Other Allergies: Coded Allergies: NO KNOWN ALLERGIES (Unverified , 02/28/18) Medications Current Medications Medications Dose Ordered Sig/Valeriy Route Start Time Stop Time Status Last Admin Dose Admin Sodium Chloride 10 ml Q8HR IV 09/11/24 22:00 09/11/24 22:08 10 ML Acetaminophen 325 mg Q4HP PRN PO 09/11/24 21:45 Ondansetron HCl 4 mg Q4HP PRN IV 09/11/24 21:45 Morphine Sulfate 2 mg Q4HPRN PRN IV 09/11/24 21:45 Enoxaparin Sodium 40 mg DAILY SC 09/11/24 21:45 09/11/24 22:29 40 MG Nitroglycerin 0.4 mg Q5MINP PRN SL 09/11/24 21:45 Morphine Sulfate 2 mg Q30M PRN IV 09/11/24 21:45 Labetalol HCl 10 mg Q2HPRN PRN IV 09/11/24 21:45 Exam Vital Signs Vital Signs Date Time Temp Pulse Resp B/P (MAP) Pulse Ox O2 Delivery O2 Flow Rate FiO2 09/11/24 22:00 72 180/67 09/11/24 20:14 19 80 09/11/24 16:53 Room Air* 0 21 09/11/24 16:53 98.0 98.0 Exam Pt is lying on bed General Appearance: Alert, Oriented X3, Cooperative, in mild distress HEENT: Atraumatic, Mucous membranes moist/pink Respiratory: Clear to auscultation, Normal air movement, No added sounds Cardiovascular: Regular rate, Normal S1, Normal S2, No murmurs Abdominal: Active bowel sounds, Soft, no distention, no tenderness Extremities: No edema, Normal pulses, No tenderness/swelling Skin: No Significant rash, except past surgical scars Neuro: Normal speech, sensorimotor deficits none Psych/Mental Status: Mental status NL, Mood NL Nurse was there as israelerone during examination Labs/Xrays Labs Test 09/11/24 20:42 09/11/24 17:19 09/11/24 17:00 Range/Units Troponin I High Sensitivity 9 </=34 ng/L White Blood Count 11.3 H 4.4-10.8 10^3/uL Red Blood Count 4.95 4.0-5.20 10^6/uL Hemoglobin 13.4 12.2-16.2 g/dL Hematocrit 41.3 36.0-46.0 % Mean Corpuscular Volume 83.4 80.0-100.0 fL Mean Corpuscular Hemoglobin 27.2 L 28.0-32.0 pg Mean Corpuscular Hemoglobin Concent 32.6 32.0-36.0 g/dL Red Cell Distribution Width 15.3 H 11.8-14.3 % Platelet Count 234 140-450 10^3/uL Mean Platelet Volume 7.7 6.9-10.8 fL Neutrophils (%) (Auto) 78.2 37.0-80.0 % Lymphocytes (%) (Auto) 13.0 10.0-50.0 % Monocytes (%) (Auto) 6.1 0.0-12.0 % Eosinophils (%) (Auto) 2.2 0.0-7.0 % Basophils (%) (Auto) 0.5 0.0-2.0 % Neutrophils # (Auto) 8.9 H 1.6-8.6 10 ^3/uL Lymphocytes # (Auto) 1.5 0.4-5.4 10 ^3/uL Monocytes # (Auto) 0.7 0-1.3 10 ^3/uL Eosinophils # (Auto) 0.2 0-0.8 10 ^3/uL Basophils # (Auto) 0.1 0-0.2 10 ^3/uL Nucleated Red Blood Cells 0.0 % Sodium Level 139 136-145 mmol/L Potassium Level 4.8 3.5-5.1 mmol/L Chloride Level 104 98-107 mmol/L Carbon Dioxide Level 30 20-31 mmol/L Anion Gap 5 5-15 Blood Urea Nitrogen 27 H 9-23 mg/dL Creatinine 1.50 H 0.550-1.02 mg/dL Glomerular Filtration Rate Calc 41 >90 mL/min BUN/Creatinine Ratio 18.0 10.0-20.0 Serum Glucose 103 74-106 mg/dL Lactic Acid Level 1.1 0.4-2.0 mmol/L Calcium Level 9.2 8.7-10.4 mg/dL Total Bilirubin 0.5 0.2-1.0 mg/dL Aspartate Amino Transferase (AST) 20 13-40 U/L Alanine Aminotransferase (ALT) 16 7-40 U/L Alkaline Phosphatase 128 H 46-116 U/L B-Type Natriuretic Peptide 46.11 0-100 pg/mL Total Protein 6.3 5.7-8.2 g/dL Albumin 3.5 3.2-4.8 g/dL Urine Color Colorless Yellow Urine Clarity Clear Clear Urine pH 7.0 5.0-9.0 Urine Specific [place] 1.003 1.001-1.035 Urine Protein 2+ H Negative Urine Ketones Negative Negative Urine Blood Trace H Negative /uL Urine Nitrite Negative Negative Urine Bilirubin Negative Negative Urine Urobilinogen Normal Negative mg/dL Urine Leukocyte Esterase 1+ Negative /uL Urine RBC 1 0 - 4 /hpf Urine WBC 5 0 - 5 /hpf Urine Squamous Epithelial Cells None seen <5 /hpf Urine Bacteria Few H None Seen /hpf Urine Glucose Normal Normal mg/dL Assessment/Plan Assessment/Plan # rule out ACS # chest pain likely due to hypertensive emergency vs ACS -troponins x3 were negative -EKG reviewed # hypertensive emergency -continuously monitor blood pressure -ordered head CT which showed no acute abnormalities -monitor for end-organ damage -currently on labetalol 10 mg p.r.n. -resumed home meds # FRANCOIS likely VMN likely due to hypertension emergency -monitor lab Lovenox for now No Gi ppx Cardiac diet Reconciled home meds Goals of care discussed with the patient and more than 27 minutes: Full code Case management discussed with Dr. Sanon, patient and nurse Plan discussed with: Patient My Orders Orders - DIEUDONNE DEE RESIDENT Procedure Category Date Status Time Admit ADMIT 09/11/24 Transmitted 21:45 Allergies LUIS 09/11/24 In Process 21:45 Code Status CODE 09/11/24 Transmitted 21:45 2 Gm Sodium Diet DIET 09/12/24 Transmitted Breakfast Sodium Chloride Lock PHA 09/11/24 In Process (Saline Lock Ns) 22:00 Acetaminophen Tablet PHA 09/11/24 In Process (Tylenol Tablet) 21:45 Ondansetron Hcl PHA 09/11/24 In Process (Zofran) 21:45 Complete Blood Count LAB 09/12/24 Verified 04:00 Comprehensive LAB 09/12/24 Verified Metabolic Panel 04:00 Cardiac DIET 09/12/24 Transmitted Diet-2gna,Lofat,Lochol Breakfast Morphine Sulfate PHA 09/11/24 In Process Injection 21:45 Enoxaparin Sodium PHA 09/11/24 In Process (Lovenox) 21:45 Nitroglycerin PHA 09/11/24 In Process Sublingual (Ntrostat 21:45 Morphine Sulfate PHA 09/11/24 In Process Injection 21:45 Oxygen By Nasal RT 09/11/24 Transmitted Cannula 21:45 Stat Ekg For Chest LUIS 09/11/24 In Process Pain 21:45 Notify Of Changes LUIS 09/11/24 In Process From Base 21:45 Wood Technologist For LUIS 09/11/24 In Process 24 Hours 21:45 Emergency Dysrhythmia LUIS 09/11/24 In Process Protocol 21:45 Rhythm Strips Once LUIS 09/11/24 In Process Every Shift 21:45 Labetalol Hcl PHA 09/11/24 In Process (Labetalol Hcl) 21:45 Nifedipine Er PHA 09/12/24 Logged (Procardia Xl 10:00 (Nf) Benazepril Hcl PHA 09/12/24 Logged 10:00 PTPTT LAB 09/12/24 Verified 04:00 Hemoglobin A1c LAB 09/11/24 Verified 23:38 Drug Screen LAB 09/11/24 Verified 23:38 Comprehensive LAB 09/11/24 Verified Metabolic Panel 23:38 Complete Blood Count LAB 09/11/24 Verified 23:38 Thyroid Stimulating LAB 09/11/24 Verified Hormone 23:38 Vitamin B12 LAB 09/11/24 Verified 23:38 Vitamin D, 25-Hydroxy LAB 09/11/24 Verified 23:38 DIEUDONNE DEE RESIDENT Sep 11, 2024 23:41
[2024-09-11 23:52] LABS: Basophils # (auto) 0.1 10 ^3/uL (0-0.2); Basophils % (auto) 0.8 % (0.0-2.0); Eosinophils # (auto) 0.2 10 ^3/uL (0-0.8); Eosinophils % (auto) 1.8 % (0.0-7.0); Hematocrit 37.3 % (36.0-46.0); Hemoglobin 12.5 g/dL (12.2-16.2); Lymphocytes # (auto) 1.6 10 ^3/uL (0.4-5.4); Lymphocytes % (auto) 14.5 % (10.0-50.0); Mean Corpuscular Hgb Conc. 33.5 g/dL (32.0-36.0); Mean Corpuscular Volume 83.4 fL (80.0-100.0); Monocytes # (auto) 0.7 10 ^3/uL (0-1.3); Monocytes % (auto) 6.4 % (0.0-12.0); Neutrophils # (auto) 8.4 10 ^3/uL (1.6-8.6); Neutrophils % (auto) 76.5 % (37.0-80.0); Platelet Count (auto) 203 10^3/uL (140-450); Red Blood Cells 4.47 10^6/uL (4.0-5.20); Red Cell Distribution Width 15.5 % (11.8-14.3)
[2024-09-12] VITALS (12 sets, daily range): BP systolic 129–166; BP diastolic 63–98; PULSE 70–85; RESP 14–19; TEMP 98.3–98.8; O2SAT 94–97
[2024-09-12 00:02] LABS: Amphetamine Screen, Urine Neg (NEGATIVE); Barbiturate Scree,Urine Neg (NEGATIVE); Benzodiazephine Screen, Urine Neg (NEGATIVE); Cannabinoid Screen, Urine Neg (NEGATIVE); Cocaine Screen, Urine Neg (NEGATIVE); Opiate Scree,Urine Neg (NEGATIVE); Phencyclidine Screen, Urine Neg (NEGATIVE)
[2024-09-12 00:18] LABS: Alanine Aminotransferase 10 U/L (7-40); Albumin 3.5 g/dL (3.2-4.8); Alkaline Phosphatase 109 U/L (46-116); Anion Gap 4 (5-15); Aspartate Aminotransferase 15 U/L (13-40); BUN/Creatinine Ratio 14.8 (10.0-20.0); Blood Urea Nitrogen 22 mg/dL (9-23); Calcium 9.1 mg/dL (8.7-10.4); Carbon Dioxide 29 mmol/L (20-31); Chloride 107 mmol/L (98-107); Glucose 93 mg/dL (74-106); Potassium 4.6 mmol/L (3.5-5.1); Sodium 140 mmol/L (136-145)
[2024-09-12 00:19] LABS: Bilirubin, Total 0.5 mg/dL (0.2-1.0)
[2024-09-12] MEDS: NIFEdipine ER 30 MG TAB PO SCH ×2 (01:03→09:36)
[2024-09-12] MEDS: LABETALOL HCL 20 MG/4 ML VL IV PRN (03:14)
[2024-09-12] MEDS ORDERED: ALBUTEROL SULF 2.5 MG/0.5ML(0.5%) NEB SOLN NEB PRN (04:45)
[2024-09-12] MEDS ORDERED: IPRATROPIUM BROM 0.5 MG/2.5ML INH SOL NEB PRN (04:45)
[2024-09-12 05:52] LABS: Basophils # (auto) 0.1 10 ^3/uL (0-0.2); Basophils % (auto) 0.8 % (0.0-2.0); Eosinophils # (auto) 0.2 10 ^3/uL (0-0.8); Hematocrit 38.1 % (36.0-46.0); Hemoglobin 12.5 g/dL (12.2-16.2); Lymphocytes % (auto) 10.7 % (10.0-50.0); Mean Corpuscular Hemoglobin 27.5 pg (28.0-32.0); Mean Corpuscular Hgb Conc. 32.8 g/dL (32.0-36.0); Mean Corpuscular Volume 83.8 fL (80.0-100.0); Monocytes # (auto) 0.6 10 ^3/uL (0-1.3); Monocytes % (auto) 6.4 % (0.0-12.0); Neutrophils # (auto) 7.6 10 ^3/uL (1.6-8.6); Neutrophils % (auto) 80.1 % (37.0-80.0); Nucleated Red Blood Cells % 0.1 %; Platelet Count (auto) 213 10^3/uL (140-450); Red Blood Cells 4.54 10^6/uL (4.0-5.20); Red Cell Distribution Width 15.2 % (11.8-14.3); White Blood Cell 9.4 10^3/uL (4.4-10.8)
[2024-09-12 06:08] LABS: INR 1.03 (0.9-1.15); Partial Thromboplastin Time 31.3 SEC (24.5-34.5); Prothrombin Time 10.9 sec (9.3-11.8)
[2024-09-12 06:10] LABS: Albumin 3.4 g/dL (3.2-4.8); Alkaline Phosphatase 109 U/L (46-116); Anion Gap 5 (5-15); Aspartate Aminotransferase 13 U/L (13-40); BUN/Creatinine Ratio 14.1 (10.0-20.0); Bilirubin, Total 0.5 mg/dL (0.2-1.0); Blood Urea Nitrogen 23 mg/dL (9-23); Calcium 9.3 mg/dL (8.7-10.4); Carbon Dioxide 27 mmol/L (20-31); Chloride 109 mmol/L (98-107); Glucose 155 mg/dL (74-106); Potassium 4.4 mmol/L (3.5-5.1); Sodium 141 mmol/L (136-145); Total Protein 5.8 g/dL (5.7-8.2)
[2024-09-12 06:12] LABS: Alanine Aminotransferase 9 U/L (7-40)
--- NOTE | 2024-09-12 06:23 | ECG ---
[facility] Test Date: 2024-09-11 Test Time: 16:35:36 Pat Name: NUSRAT CASTILLO Department: ER Room: 0245T A Gender: F Dance Therapist: ROSE : 1970 Requested By: VIJAYA MCLEOD Order Number: [id number] Reading MD: Candelario Quintana Measurements Intervals [place] Rate: 77 P: 75 LA: 158 QRS: 39 QRSD: 79 T: 35 QT: 442 QTc: 501 Interpretive Statements Sinus rhythm Probable left atrial enlargement Probable left ventricular hypertrophy Borderline prolonged QT interval Electronically Signed On 09-12-2024 12:45:33 PST by Candelario Quintana Please click the below link to view image of tracing.
[2024-09-12] MEDS ORDERED: hydrALAZINE HCL 20 MG/ML VL IV PRN (08:00)
[2024-09-12 09:10] LABS: Free T3 3.41 pg/mL (2.3-4.2); Free T4 (Free Thyroxine) 1.09 ng/dL (0.89-1.76)
[2024-09-12] MEDS: CYANOCOBALAMIN (B-12) 1000 MCG/1 ML VIAL IM ONE (09:32)
[2024-09-12] MEDS: ERGOCALCIFEROL 50,000 UNIT(1.25MG) CAP PO SCH (09:33)
[2024-09-12] MEDS: ASPirin 81 mg TAB PO SCH (09:33)
--- NOTE | 2024-09-12 09:33 | DVHPNRES ---
Progress Note Date Seen: Sep 12, 2024 Resident Creating Document: COLETTE SOARES RESIDENT Medical Necessity Reason Pt with a Central, PICC or Fol: No Subjective Review of Systems This is a 54-year-old female patient with PMHx of R Internal capsule CVA 2018 secondary to uncontrolled hypertension - not on aspirin, history of asthma on albuterol and Advair inhalers, history of cystitis, hypertension, dyslipidemia who presented to the ER with the chief complaint of elevated blood pressure, headache, chest pressure.Reports that she lost her sister, and having stress in her personal life, experienced headache, which was dull and band like starting 09/09, assosiacted with feeling of warmath and swollen head. Says that she hecked her BP which was systolic 200 mmhg. Also reports chest pressure, left sides, no radaitaio, associated with SOB on exertion, palpitations, but denies N/V, fever, chills, orthopnea, PND. Chest pain doesn't worsen on exertion. PMH; See HPI PSH; 2 C sec Social Hx; Lives with , denies lifetimes hx of smoking/drinking/illicit drug use. PCP; Dr Griffiths Home meds; Nifedipine 30mg Objective vital signs Vital Sign Date Time Temp Pulse Resp B/P (MAP) Pulse Ox O2 Delivery O2 Flow Rate FiO2 09/12/24 08:47 98.5 74 14 129/86 (100) 96 98.5 09/12/24 02:53 Room Air* 0 21 Total Intake and Output 09/11/24 09/11/24 09/12/24 15:00 23:00 07:00 Intake Total 675 ml Output Total 450 ml Balance 225 ml medications Current Medications Medications Dose Ordered Sig/Valeriy Route Start Time Stop Time Status Last Admin Dose Admin Sodium Chloride 10 ml Q8HR IV 09/11/24 22:00 09/12/24 06:15 10 ML Acetaminophen 325 mg Q4HP PRN PO 09/11/24 21:45 Ondansetron HCl 4 mg Q4HP PRN IV 09/11/24 21:45 Morphine Sulfate 2 mg Q4HPRN PRN IV 09/11/24 21:45 Enoxaparin Sodium 40 mg DAILY SC 09/11/24 21:45 09/11/24 22:29 40 MG Nitroglycerin 0.4 mg Q5MINP PRN SL 09/11/24 21:45 Morphine Sulfate 2 mg Q30M PRN IV 09/11/24 21:45 Labetalol HCl 10 mg Q2HPRN PRN IV 09/12/24 00:30 09/12/24 03:14 10 MG Albuterol 1.25 mg Q4HPRN PRN NEB 09/12/24 04:45 Ipratropium Mckenna 0.5 mg Q4HPRN PRN NEB 09/12/24 04:45 Ceftriaxone Sodium 50 ml @ 100 mls/hr DAILY@09 IV 09/12/24 09:00 Ergocalciferol 50,000 unit Q7D PO 09/12/24 07:30 Aspirin 81 mg DAILY PO 09/12/24 10:00 Atorvastatin Calcium 40 mg HS PO 09/12/24 22:00 Nifedipine 90 mg DAILY PO 09/12/24 10:00 Hydralazine HCl 10 mg Q6HP PRN IV 09/12/24 08:00 Examination Young female lying in bed, in no acute distress General: Well-built, afebrile, palor, mucosae are moist Cardiovascular: Regular S1 and S2. No murmurs, gallops or rubs. No JVD elevation. 1+ pitting edema Respiratory: Normal B/L air entry on room air. Clear lung sounds on auscultation Abdomen: Soft, nontender, nondistended, normoactive bowel sounds, no rebound tenderness, no organomegaly, no masses Genitourinary: Deferred MSK/skin: Mobilizes 4 limbs. Skin is dry and warm Neurological: No motor, no sensitive deficits, normal speech. Pupils are isocoric and reactive. Psych/Mental Status: A/Ox4 laboratory and microbiology Laboratory Tests 09/12/24 05:16 Test 09/12/24 05:16 Range/Units Serum Glucose 155 H 74-106 mg/dL Labs and/or images reviewed: Labs reviewed by me, Image(s) reviewed by me Problem List/Assessment/Plan Problem List/Assessment/Plan Chest pain, ruled out ACS likely secondary to hypertensive emergency Hypertensive heart disease EKG completed, reviewed, shows LVH criteria and prolonged QTC otherwise no ST changes Troponins WNL BNP 46 Patient received aspirin 325 mg once Echocardiogram completed 09/12, shows normal LV size and dimension. EF 55%. Grade 1 diastolic dysfunction. Mildly elevated RV SP 24 mmhg. Hypertensive emergency Uncontrolled hypertension Increased home medication nifedipine to 90 mg daily Renal artery ultrasound was unremarkable for renal artery stenosis Labetalol 10 mg IV Q 2h p.r.n. Acute cystitis Continue ceftriaxone IV 1 g day starting 09/11 Urine bacterial culture pending FRANCOIS likely intrinsic due to hypertension emergency Creatinine 1.6 IV NS 500 cc administered FeNa 2.3% 24 hour urinary protein excretion - 4.3 g per day Nephrology consulted ANNELISE, hepatitis-B surface antigen, hepatitis-C antibody, 24 hour urine protein pending Strict I&Os Asthma - controlled Continue nebulized treatment with albuterol and ipratropium q.4 p.r.n. History right-sided internal capsule non hemorrhagic CVA 2018 - not on aspirin Started aspirin 81 mg daily alongside pravastatin 80 mg daily Dyslipidemia Patient reports muscle cramps on atorvastatin 40 mg daily Started pravastatin 80 mg daily Prediabetes Counseled regarding lifestyle measures and dietary measures DVT PPx Lovenox 40 mg sc daily Diet Cardiac Plan discussed with patient and at bedside, all questions have been answered Goals of care discussed with the patient, patient did not have any previous discussions have advanced directives, she will think about it. Full code for now. Case discussed with Dr. Sanon. Nephrology consulted. Plan discussed with: Patient, Spouse (at bedside) My Orders My Orders Orders - COLETTE SOARES Procedure Category Date Status Time Ceftriaxone 1gm/50ml PHA 09/12/24 In Process D5w (Rocephin) 09:00 Urine Bacterial RAJINDER 09/12/24 Logged Culture 07:25 Echo 2d Mode Cardiac US 09/12/24 Logged DOP 07:25 Covid19 Antigen [facility] 09/12/24 Logged Ergocalciferol PHA 09/12/24 In Process (Vitamin D 50,000 07:30 Aspirin Tablet PHA 09/12/24 In Process 10:00 Atorvastatin (Lipitor) PHA 09/12/24 In Process 22:00 COLETTE SOARES Sep 12, 2024 09:33
[2024-09-12] MEDS: cefTRIAXone 1GM/50ML D5W 50 ML IV SCH (09:34)
[2024-09-12] MEDS ORDERED: NIFEdipine ER 30 MG TAB PO SCH (10:00)
[2024-09-12] MEDS ORDERED: BENAZEPRIL HCL 10 MG TAB PO SCH (10:00)
[2024-09-12] MEDS: SODIUM CHLORIDE 0.9% 500 ML IV ONE (10:15)
[2024-09-12 12:27] LABS: Protein, Urine 147.3 mg/dL (1-14)
[2024-09-12 12:30] LABS: Creatinine, Urine 34.16 mg/dL (30.0-125.0)
--- NOTE | 2024-09-12 13:27 | DVHSR ---
APPROVED REPORT EXAM: Two-dimensional and M-mode echocardiogram with Doppler and color Doppler. Blood Pressure: 159/79 mmHg INDICATION Hypertension RISK FACTORS Height: 60, Weight: 141 DIMENSIONS LVDd4.2 (3.8-5.7cm)LA (2D)3.4 (1.9-4.0cm)Aortic Root3.1 (2.0-3.7cm) LVDs3.1 (2.5-4.0cm)LA (MM) (1.9-4.0cm)Aortic Cusp Exc1.7 (1.5-2.0cm) EF (%) 50.0 (55-70%)Rt. Atrium3.1 (1.9-4.0cm)Asc. Aorta cm IVSd1.0 (0.7-1.1cm)RV (D) (1.8-2.4cm) PWd1.2 (0.7-1.1cm) Mitral Valve MitralMitral Stenosis E wave0.73m/sMV Mean GR.mmHg A wave0.80m/sMV Peak GR.70mmHg E/A ratio0.92D MVAcm2 DECEL [id number] 1/2 [id number] IVRTmsDop MVA2.96cm2 Aortic Valve Aortic ValveAortic Stenosis V10.96m/Wyatt Mean GR.4mmHg V21.36m/Wyatt Peak GR.7mmHg LVOT Diameter2.0 (1.8-2.4cm)Doppler AVA2.22cm2 Pulmonic Valve V21.06m/s Tricuspid Valve TR Velocity2.32m/s [id number] Conclusion Normal left ventricular size and dimension. Normal left ventricular systolic function estimated ejec tion fraction 55%. There is a grade 1 diastolic dysfunction. Normal right ventricular size and dimension. Normal right ventricular systolic function. Mildly sharla vated right ventricular systolic [id number] mm of mercury. Normal biatrial size and dimension. Normal aortic valve structure and function. Normal mitral valve structure and function. Normal tricuspid valve structure and function. The pulmonary valve is grossly normal. No pericardial effusion.
[2024-09-12 14:59] LABS: COVID19 ANTIGEN SOFIA FIA NEGATIVE (NEGATIVE)
--- NOTE | 2024-09-12 15:47 | DVH ---
ULTRASOUND RENAL CLINICAL INDICATION: Renal artery stenosis TECHNIQUE: Real-time sonographic, duplex, and color Doppler images of the kidneys were obtained. FINDINGS: The right kidney measures 9 cm and is normal in size. The right renal echogenicity, contou r and cortical thickness are within normal limits. Mild hydronephrosis The left kidney measures 10 cm and is normal in size. The left renal echogenicity, contour, and corti mac thickness are within normal limits. No hydronephrosis, large masses or perinephric fluid is seen. Subsequent Doppler interrogation of the kidneys was performed. Neither artery was seen in its entiret y due to overlying bowel gas. On the right, the internal renal artery Doppler showed good upstroke d uring systole with a Resistive Index ranging from 0.62 to 0.68. The velocity of the renal artery by t he hilum measures 52 cm/sec, in the mid region 75 cm/sec The velocity within the aorta measures 75 m/sec. On the left internal renal artery Doppler showed good upstroke during systole with a Resistive Index ranging from 0.6 to 0.68. The velocity of the renal artery by the hilum measures 25 cm/sec, in the m id region 67 cm/sec . IMPRESSION: Normal examination. [<reference, normal RI <.7>]
[2024-09-12] MEDS: PRAVASTATIN SODIUM 20 MG TAB PO SCH (21:39)
[2024-09-12] MEDS ORDERED: ATORVASTATIN 20 MG TAB PO SCH (22:00)
[2024-09-13] VITALS (8 sets, daily range): BP systolic 129–149; BP diastolic 69–75; PULSE 59–85; RESP 16–18; TEMP 97.9–98.5; O2SAT 94–98
[2024-09-13 06:00] LABS: Basophils # (auto) 0.1 10 ^3/uL (0-0.2); Basophils % (auto) 0.8 % (0.0-2.0); Eosinophils # (auto) 0.3 10 ^3/uL (0-0.8); Eosinophils % (auto) 3.2 % (0.0-7.0); Hemoglobin 13.3 g/dL (12.2-16.2); Lymphocytes # (auto) 1.2 10 ^3/uL (0.4-5.4); Lymphocytes % (auto) 12.8 % (10.0-50.0); Mean Corpuscular Hemoglobin 27.7 pg (28.0-32.0); Mean Corpuscular Hgb Conc. 33.2 g/dL (32.0-36.0); Mean Corpuscular Volume 83.5 fL (80.0-100.0); Monocytes # (auto) 0.7 10 ^3/uL (0-1.3); Monocytes % (auto) 8.1 % (0.0-12.0); Neutrophils # (auto) 6.7 10 ^3/uL (1.6-8.6); Neutrophils % (auto) 75.1 % (37.0-80.0); Nucleated Red Blood Cells % 0.3 %; Platelet Count (auto) 194 10^3/uL (140-450); Red Blood Cells 4.79 10^6/uL (4.0-5.20); Red Cell Distribution Width 15.4 % (11.8-14.3)
[2024-09-13 06:22] LABS: Chloride 109 mmol/L (98-107); Potassium 4.2 mmol/L (3.5-5.1); Sodium 140 mmol/L (136-145)
[2024-09-13 06:23] LABS: Anion Gap 4 (5-15); Carbon Dioxide 27 mmol/L (20-31)
[2024-09-13 06:28] LABS: BUN/Creatinine Ratio 14.9 (10.0-20.0); Blood Urea Nitrogen 21 mg/dL (9-23); Glucose 89 mg/dL (74-106)
--- NOTE | 2024-09-13 12:29 | DVHINCON2 ---
Date of service: Sep 13, [address] Onofre Reason for Consultation Acute kidney injury History of Present Illness Patient is 54-year-old female with past medical history significant for HTN, CVA, and HLD is admitted for hypertension out of control from the urgent care a ssociated with headache. On admission patient found to have elevated BUN creatinine nephrology is consulted for acute kidney injury Past Medical History PMHx: HTN, CVA, HLD Past Surgical History PSHx: Allergies: Coded Allergies: NO KNOWN ALLERGIES (Unverified , 02/28/18) Home Meds Active Scripts Benazepril Hcl (Benazepril Hcl) 20 Mg Tab, 1 TAB PO DAILY, #30 TAB 5 Refills Prov:JUSTO GALINDO MD 08/19/23 Nifedipine (Nifedipine Er) 30 Mg Tab, 2 TAB PO DAILY, #60 TAB 3 Refills Prov:JUSTO GALINDO MD 08/19/23 Current Medications Current Medications Medications (Trade) Dose Ordered Sig/Valeriy Route PRN Reason Start Time Stop Time Status Last Admin Atorvastatin Calcium (Lipitor) 40 mg HS PO 09/12/24 22:00 09/12/24 11:25 DC Pravastatin Sodium (Pravachol Tablet) 80 mg HS PO 09/12/24 22:00 09/12/24 21:39 Family History: Diabetes mellitus G8 FATHER, Onset:Unknown FH: melanoma G8 FATHER, Onset:Unknown Hypertension Review of Systems All 12 item review of systems reviewed with the patient nonsignificant except what is mentioned in the history of present illness H&P Exam Vital Signs/I&O Vital Sign Date Time Temp Pulse Resp B/P (MAP) Pulse Ox O2 Delivery O2 Flow Rate FiO2 09/13/24 09:43 132/73 09/13/24 09:00 98.2 85 17 96 98.2 09/13/24 07:38 Room Air* 0 21 Intake and Output 09/12/24 09/13/24 19:00 07:00 Intake Total 1200 ml 600 ml Balance 1200 ml 600 ml Intake Oral 1200 ml 600 ml # Voids 3 3 # Bowel Movements 1 Physical Exam Patient is awake alert appeared in no acute distress, at the bedside Lungs clear to auscultation bilaterally Cardiac exam regular rate and rhythm GI soft nontender was normal Extremities no clubbing cyanosis or edema Neuro patient is awake and alert Labs/Diagnostic Data Labs/Diagnostic Data Laboratory Tests Test 09/13/24 05:30 09/12/24 11:17 09/12/24 09:11 09/12/24 05:16 Range/Units White Blood Count 9.0 9.4 4.4-10.8 10^3/uL Red Blood Count 4.79 4.54 4.0-5.20 10^6/uL Hemoglobin 13.3 12.5 12.2-16.2 g/dL Hematocrit 40.0 38.1 36.0-46.0 % Mean Corpuscular Volume 83.5 83.8 80.0-100.0 fL Mean Corpuscular Hemoglobin 27.7 L 27.5 L 28.0-32.0 pg Mean Corpuscular Hemoglobin Concent 33.2 32.8 32.0-36.0 g/dL Red Cell Distribution Width 15.4 H 15.2 H 11.8-14.3 % Platelet Count 194 213 140-450 10^3/uL Mean Platelet Volume 7.8 8.1 6.9-10.8 fL Neutrophils (%) (Auto) 75.1 80.1 H 37.0-80.0 % Lymphocytes (%) (Auto) 12.8 10.7 10.0-50.0 % Monocytes (%) (Auto) 8.1 6.4 0.0-12.0 % Eosinophils (%) (Auto) 3.2 2.0 0.0-7.0 % Basophils (%) (Auto) 0.8 0.8 0.0-2.0 % Neutrophils # (Auto) 6.7 7.6 1.6-8.6 10 ^3/uL Lymphocytes # (Auto) 1.2 1.0 0.4-5.4 10 ^3/uL Monocytes # (Auto) 0.7 0.6 0-1.3 10 ^3/uL Eosinophils # (Auto) 0.3 0.2 0-0.8 10 ^3/uL Basophils # (Auto) 0.1 0.1 0-0.2 10 ^3/uL Nucleated Red Blood Cells 0.3 0.1 % Sodium Level 140 141 136-145 mmol/L Potassium Level 4.2 4.4 3.5-5.1 mmol/L Chloride Level 109 H 109 H 98-107 mmol/L Carbon Dioxide Level 27 27 20-31 mmol/L Anion Gap 4 L 5 5-15 Blood Urea Nitrogen 21 23 9-23 mg/dL Creatinine 1.41 H 1.63 H 0.550-1.02 mg/dL Glomerular Filtration Rate Calc 44 37 >90 mL/min BUN/Creatinine Ratio 14.9 14.1 10.0-20.0 Serum Glucose 89 155 H 74-106 mg/dL Calcium Level 9.0 9.3 8.7-10.4 mg/dL Urine Creatinine 34.16 30.0-125.0 mg/dL Urine Sodium 69 40-220 mmol/L Urine Total Protein 147.3 H 1-14 mg/dL SARS-CoV-2 Antigen (Rapid) Negative NEGATIVE Prothrombin Time 10.9 9.3-11.8 sec Prothrombin Time INR 1.03 0.9-1.15 Activated Partial Thromboplast Time 31.3 24.5-34.5 SEC Total Bilirubin 0.5 0.2-1.0 mg/dL Aspartate Amino Transferase (AST) 13 13-40 U/L Alanine Aminotransferase (ALT) 9 7-40 U/L Alkaline Phosphatase 109 46-116 U/L Total Protein 5.8 5.7-8.2 g/dL Albumin 3.4 3.2-4.8 g/dL Free Thyroxine (T4) Calculated 1.09 0.89-1.76 ng/dL Free Triiodothyronine (T3) pg/mL 3.41 2.3-4.2 pg/mL Test 09/11/24 23:42 09/11/24 20:42 09/11/24 18:11 09/11/24 17:19 Range/Units White Blood Count 11.0 H 11.3 H 4.4-10.8 10^3/uL Red Blood Count 4.47 4.95 4.0-5.20 10^6/uL Hemoglobin 12.5 13.4 12.2-16.2 g/dL Hematocrit 37.3 41.3 36.0-46.0 % Mean Corpuscular Volume 83.4 83.4 80.0-100.0 fL Mean Corpuscular Hemoglobin 28.0 27.2 L 28.0-32.0 pg Mean Corpuscular Hemoglobin Concent 33.5 32.6 32.0-36.0 g/dL Red Cell Distribution Width 15.5 H 15.3 H 11.8-14.3 % Platelet Count 203 234 140-450 10^3/uL Mean Platelet Volume 7.6 7.7 6.9-10.8 fL Neutrophils (%) (Auto) 76.5 78.2 37.0-80.0 % Lymphocytes (%) (Auto) 14.5 13.0 10.0-50.0 % Monocytes (%) (Auto) 6.4 6.1 0.0-12.0 % Eosinophils (%) (Auto) 1.8 2.2 0.0-7.0 % Basophils (%) (Auto) 0.8 0.5 0.0-2.0 % Neutrophils # (Auto) 8.4 8.9 H 1.6-8.6 10 ^3/uL Lymphocytes # (Auto) 1.6 1.5 0.4-5.4 10 ^3/uL Monocytes # (Auto) 0.7 0.7 0-1.3 10 ^3/uL Eosinophils # (Auto) 0.2 0.2 0-0.8 10 ^3/uL Basophils # (Auto) 0.1 0.1 0-0.2 10 ^3/uL Nucleated Red Blood Cells 0.0 0.0 % Sodium Level 140 139 136-145 mmol/L Potassium Level 4.6 4.8 3.5-5.1 mmol/L Chloride Level 107 104 98-107 mmol/L Carbon Dioxide Level 29 30 20-31 mmol/L Anion Gap 4 L 5 5-15 Blood Urea Nitrogen 22 27 H 9-23 mg/dL Creatinine 1.49 H 1.50 H 0.550-1.02 mg/dL Glomerular Filtration Rate Calc 41 41 >90 mL/min BUN/Creatinine Ratio 14.8 18.0 10.0-20.0 Serum Glucose 93 103 74-106 mg/dL Hemoglobin A1c 5.8 H <5.7 % A1C Calcium Level 9.1 9.2 8.7-10.4 mg/dL Total Bilirubin 0.5 0.5 0.2-1.0 mg/dL Aspartate Amino Transferase (AST) 15 20 13-40 U/L Alanine Aminotransferase (ALT) 10 16 7-40 U/L Alkaline Phosphatase 109 128 H 46-116 U/L Total Protein 6.0 6.3 5.7-8.2 g/dL Albumin 3.5 3.5 3.2-4.8 g/dL Vitamin B12 Level 380 211-911 pg/mL Vitamin D 25-Hydroxy 38.3 30.0-100 ng/mL Thyroid Stimulating Hormone (TSH) 5.98 H 0.55-4.78 uIU/mL Troponin I High Sensitivity 9 8 8 </=34 ng/L Lactic Acid Level 1.1 0.4-2.0 mmol/L B-Type Natriuretic Peptide 46.11 0-100 pg/mL Test 09/11/24 17:00 Range/Units Urine Color Colorless Yellow Urine Clarity Clear Clear Urine pH 7.0 5.0-9.0 Urine Specific [place] 1.003 1.001-1.035 Urine Protein 2+ H Negative Urine Ketones Negative Negative Urine Blood Trace H Negative /uL Urine Nitrite Negative Negative Urine Bilirubin Negative Negative Urine Urobilinogen Normal Negative mg/dL Urine Leukocyte Esterase 1+ Negative /uL Urine RBC 1 0 - 4 /hpf Urine WBC 5 0 - 5 /hpf Urine Squamous Epithelial Cells None seen <5 /hpf Urine Bacteria Few H None Seen /hpf Urine Glucose Normal Normal mg/dL Urine Opiates Screen Neg NEGATIVE Urine Fentanyl Screen Neg NEGATIVE Urine Barbiturates Screen Neg NEGATIVE Urine Phencyclidine Screen Neg NEGATIVE Urine Amphetamines Screen Neg NEGATIVE Urine Benzodiazepines Screen Neg NEGATIVE Urine Cocaine Screen Neg NEGATIVE Urine Cannabinoids Screen Neg NEGATIVE Assessment Acute kidney injury superimposed Chronic Kidney Disease secondary hemodynamic mediated Hypertensive urgency Chronic headaches Hyperlipidemia History of CVA Chronic NSAIDs use Recommendations Closely monitor fluid and electrolytes Avoid nephrotoxic medications Check urine electrolytes and urine protein excretion Doppler renal ultrasound reported within normal limit Blood pressure control DC all NSAIDs use We will continue to follow Patient seen and examined by myself. I discussed my plan of care with the patient, her and the primary nurse at the bedside I would like to thank Dr. Onofre for the consult, will follow up Plan discussed with: Patient, Spouse LUISA NAVARRO MD Sep 13, 2024 12:29
[2024-09-13] MEDS ORDERED: PRAV20TA3 PO (16:56)
[2024-09-13] MEDS ORDERED: ASPI-325 PO (16:56)
[2024-09-13] MEDS ORDERED: NIFE1TAB31 PO (16:56)
--- NOTE | 2024-09-13 17:06 | DVHDSRES ---
Discharge Summary Date of Admission Resident Creating Document: COLETTE SOARES RESIDENT Sep 11, 2024 at 21:45 Date of Discharge: Sep 13, 2024 Admitting Diagnosis Hypertension and chest pain Labs/Diagnostic Data: Laboratory Results Test 09/13/24 05:30 09/12/24 11:17 09/12/24 09:11 09/12/24 05:16 White Blood Count 9.0 10^3/uL (4.4-10.8) Red Blood Count 4.79 10^6/uL (4.0-5.20) Hemoglobin 13.3 g/dL (12.2-16.2) Hematocrit 40.0 % (36.0-46.0) Mean Corpuscular Volume 83.5 fL (80.0-100.0) Mean Corpuscular Hemoglobin 27.7 pg (28.0-32.0) Mean Corpuscular Hemoglobin Concent 33.2 g/dL (32.0-36.0) Red Cell Distribution Width 15.4 % (11.8-14.3) Platelet Count 194 10^3/uL (140-450) Mean Platelet Volume 7.8 fL (6.9-10.8) Neutrophils (%) (Auto) 75.1 % (37.0-80.0) Lymphocytes (%) (Auto) 12.8 % (10.0-50.0) Monocytes (%) (Auto) 8.1 % (0.0-12.0) Eosinophils (%) (Auto) 3.2 % (0.0-7.0) Basophils (%) (Auto) 0.8 % (0.0-2.0) Neutrophils # (Auto) 6.7 10 ^3/uL (1.6-8.6) Lymphocytes # (Auto) 1.2 10 ^3/uL (0.4-5.4) Monocytes # (Auto) 0.7 10 ^3/uL (0-1.3) Eosinophils # (Auto) 0.3 10 ^3/uL (0-0.8) Basophils # (Auto) 0.1 10 ^3/uL (0-0.2) Nucleated Red Blood Cells 0.3 % Sodium Level 140 mmol/L (136-145) Potassium Level 4.2 mmol/L (3.5-5.1) Chloride Level 109 mmol/L (98-107) Carbon Dioxide Level 27 mmol/L (20-31) Anion Gap 4 (5-15) Blood Urea Nitrogen 21 mg/dL (9-23) Creatinine 1.41 mg/dL (0.550-1.02) Glomerular Filtration Rate Calc 44 mL/min (>90) BUN/Creatinine Ratio 14.9 (10.0-20.0) Serum Glucose 89 mg/dL (74-106) Calcium Level 9.0 mg/dL (8.7-10.4) Urine Creatinine 34.16 mg/dL (30.0-125.0) Urine Sodium 69 mmol/L (40-220) Urine Total Protein 147.3 mg/dL (1-14) SARS-CoV-2 Antigen (Rapid) Negative (NEGATIVE) Prothrombin Time 10.9 sec (9.3-11.8) Prothrombin Time INR 1.03 (0.9-1.15) Activated Partial Thromboplast Time 31.3 SEC (24.5-34.5) Total Bilirubin 0.5 mg/dL (0.2-1.0) Aspartate Amino Transferase (AST) 13 U/L (13-40) Alanine Aminotransferase (ALT) 9 U/L (7-40) Alkaline Phosphatase 109 U/L (46-116) Total Protein 5.8 g/dL (5.7-8.2) Albumin 3.4 g/dL (3.2-4.8) Free Thyroxine (T4) Calculated 1.09 ng/dL (0.89-1.76) Free Triiodothyronine (T3) pg/mL 3.41 pg/mL (2.3-4.2) Test 09/11/24 23:42 09/11/24 20:42 09/11/24 17:19 09/11/24 17:00 Hemoglobin A1c 5.8 % A1C (<5.7) Vitamin B12 Level 380 pg/mL (211-911) Vitamin D 25-Hydroxy 38.3 ng/mL (30.0-100) Thyroid Stimulating Hormone (TSH) 5.98 uIU/mL (0.55-4.78) Troponin I High Sensitivity 9 ng/L (</=34) Lactic Acid Level 1.1 mmol/L (0.4-2.0) B-Type Natriuretic Peptide 46.11 pg/mL (0-100) Urine Color Colorless (Yellow) Urine Clarity Clear (Clear) Urine pH 7.0 (5.0-9.0) Urine Specific [place] 1.003 (1.001-1.035) Urine Protein 2+ (Negative) Urine Ketones Negative (Negative) Urine Blood Trace /uL (Negative) Urine Nitrite Negative (Negative) Urine Bilirubin Negative (Negative) Urine Urobilinogen Normal mg/dL (Negative) Urine Leukocyte Esterase 1+ /uL (Negative) Urine RBC 1 /hpf (0 - 4) Urine WBC 5 /hpf (0 - 5) Urine Squamous Epithelial Cells None seen /hpf (<5) Urine Bacteria Few /hpf (None Seen) Urine Glucose Normal mg/dL (Normal) Urine Opiates Screen Neg (NEGATIVE) Urine Fentanyl Screen Neg (NEGATIVE) Urine Barbiturates Screen Neg (NEGATIVE) Urine Phencyclidine Screen Neg (NEGATIVE) Urine Amphetamines Screen Neg (NEGATIVE) Urine Benzodiazepines Screen Neg (NEGATIVE) Urine Cocaine Screen Neg (NEGATIVE) Urine Cannabinoids Screen Neg (NEGATIVE) Other Laboratory Tests 09/13/24 05:30 Brief Hx & Hospital Course: Giacomo Denney a 54-year-old female patient with PMHx of R Internal capsule CVA 2018 secondary to uncontrolled hypertension - not on aspirin, history of asthma on albuterol and Advair inhalers, history of cystitis, hypertension, dyslipidemia who presented to the ER with the chief complaint of elevated blood pressure, headache, chest pressure.Reports that she lost her sister, and having stress in her personal life, experienced headache, which was dull and band like starting 09/09, assosiacted with feeling of warmath and swollen head. Says that she hecked her BP which was systolic 200 mmhg. Also reports chest pressure, left sides, no radaitaio, associated with SOB on exertion, palpitations, but denies N/V, fever, chills, orthopnea, PND. Chest pain doesn't worsen on exertion. PMH; See HPI PSH; 2 C sec Social Hx; Lives with , denies lifetimes hx of smoking/drinking/illicit drug use. PCP; Dr Griffiths Home meds; Nifedipine 30mg During the hospital stay, EKG was completed which showed LVH criteria and prolonged QTC otherwise no ST changes. Troponins WNL. BNP 46. Patient received aspirin 325 mg once. Echocardiogram completed 09/12, shows normal LV size and dimension. EF 55%. Grade 1 diastolic dysfunction. Mildly elevated RV SP 24 mmhg. Patient was diagnosed with hypertensive emergency and FRANCOIS likely intrinsic due to hypertension emergency, creatinine was 1.6. FENA came out at 2.3%. A head CT was completed which showed no acute intracranial hemorrhage, midline shift or mass effect. Urine protein excretion shows 4.3 g per day. Nephrology was consulted recommended to DC NSAIDs. Dr Arguello recommended outpatient follow up within 2 weeks as the patient would require probable renal biopsy. A renal artery ultrasound was completed which was unremarkable for renal artery stenosis. Patient's home medication nifedipine was increased to 90 mg daily after which her blood pressure was adequately controlled. UA showed 1+ esterase and few bacteria and therefore patient received ceftriaxone from 09/11 to 09/13. Given the history of stroke, patient denied taking aspirin or atorvastatin at home. She says that atorvastatin causes muscle cramps. Therefore she was started on pravastatin 80 mg during the hospital stay. And she will be discharged on rosuvastatin 20 mg daily along with aspirin 81 mg daily. Lab workup also showed prediabetes and the patient was counseled regarding lifestyle measures and dietary habits. 09/13/2024-patient is clinically stable, no active complaint, hemodynamically stable therefore she is being discharged home on nifedipine 90 mg daily, rosuvastatin 20 mg daily, aspirin 81 mg daily and is recommended to follow up with auto body mechanic Dr. Olson within 2 weeks for possible renal biopsy. She is also advised to follow up with discharge clinic appointment within 7-14 days and primary care physician in 7-14 days. was present at bedside during the discharge planning and during the hospital stay who was continuously updated regarding the patient's plan and prognosis. Patient agreed to the discharge plan. Examination Young female lying in bed, in no acute distress General: Well-built, afebrile, palor, mucosae are moist Cardiovascular: Regular S1 and S2. No murmurs, gallops or rubs. No JVD elevation. 1+ pitting edema Respiratory: Normal B/L air entry on room air. Clear lung sounds on auscultation Abdomen: Soft, nontender, nondistended, normoactive bowel sounds, no rebound tenderness, no organomegaly, no masses Genitourinary: Deferred MSK/skin: Mobilizes 4 limbs. Skin is dry and warm Neurological: No motor, no sensitive deficits, normal speech. Pupils are isocoric and reactive. Psych/Mental Status: A/Ox4 Consults/Reason for consult Nephrology consulted for FRANCOIS due to hypertensive emergency Operations or Procedures ORDERING PHYSICIAN: TYRON SARABIA PROCEDURE(s): RENARTLMTD - RENAL ARTERY LMTD REASON: HYPERTENSIVE URGENCY, FRANCOIS ORDER NUMBER(s): [id number], ACCESSION NUMBER(s): [id number] ULTRASOUND RENAL CLINICAL INDICATION: Renal artery stenosis TECHNIQUE: Real-time sonographic, duplex, and color Doppler images of the kidneys were obtained. FINDINGS: The right kidney measures 9 cm and is normal in size. The right renal echogenicity, contour and cortical thickness are within normal limits. Mild hydronephrosis The left kidney measures 10 cm and is normal in size. The left renal echogenicity, contour, and cortical thickness are within normal limits. No hydronephrosis, large masses or perinephric fluid is seen. Subsequent Doppler interrogation of the kidneys was performed. Neither artery was seen in its entirety due to overlying bowel gas. On the right, the internal renal artery Doppler showed good upstroke during systole with a Resistive Index ranging from 0.62 to 0.68. The velocity of the renal artery by the hilum measures 52 cm/sec, in the mid region 75 cm/sec The velocity within the aorta measures 75 m/sec. On the left internal renal artery Doppler showed good upstroke during systole with a Resistive Index ranging from 0.6 to 0.68. The velocity of the renal artery by the hilum measures 25 cm/sec, in the mid region 67 cm/sec . IMPRESSION: Normal examination. [<reference, normal RI <.7>] ATED BY: SABRINA TORRES MD DICTATED DATE/TIME: 09/12/241543 SIGNED BY: SABRINA TORRES MD SIGNED DATE/TIME: 09/12/241543 CC: ORDERING PHYSICIAN: VIJAYA MCLEOD DO PROCEDURE(s): HWOCT - HEAD WITHOUT CONTRAST REASON: HTN, CARRILLO ORDER NUMBER(s): [id number], ACCESSION NUMBER(s): [id number] EXAM: CT Head Without Intravenous Contrast CLINICAL INDICATION: HTN, CARRILLO TECHNIQUE: Axial computed tomography images of the head/brain without intravenous contrast. This CT exam was performed using one or more of the following dose reduction techniques: automated exposure control, adjustment of the mA and/or kV according to patient size, and/or use of iterative reconstruction technique. RADIATION DOSE: CTDlvol= 51.5 mGy, DLP= 826.02 mGy-cm COMPARISON: CT HEAD WITHOUT CONTRAST on DOS: 08/17/23, CT ANGIO CHEST CONTRAST on DOS: 11/07/19 FINDINGS: BRAIN AND EXTRA-AXIAL SPACES: Unremarkable. No significant white matter disease. No acute intracranial hemorrhage, midline shift or mass effect. BONES/JOINTS: Unremarkable. No acute fracture. SOFT TISSUES: Unremarkable. SINUSES: Unremarkable as visualized. No acute sinusitis. MASTOID AIR CELLS: Unremarkable as visualized. No mastoid effusion. OTHER FINDINGS: . . . IMPRESSION: 1. No acute intracranial hemorrhage, midline shift or mass effect. 2. No significant change from the prior exam. HS:Y ATED BY: SHERRILL FIELD MD DICTATED DATE/TIME: 09/11/241704 SIGNED BY: SHERRILL FIELD MD SIGNED DATE/TIME: 09/11/241704 CC: Condition at Discharge: Stable Final Diagnosis/Problems List Chest pain, ruled out ACS likely secondary to hypertensive emergency Hypertensive heart disease Hypertensive emergency Uncontrolled hypertension. Acute cystitis FRANCOIS likely intrinsic due to hypertension emergency Asthma-controlled History of right-sided internal capsule non hemorrhagic CVA 2017 - not on aspirin Dyslipidemia Prediabetes Discharge Disposition: Home Discharge Instruct/Medications Diet: Regular, Cardiac 2g Na,low cholest Activity: Light activity Follow Up/Referral: Follow up with auto body mechanic Dr Olson within 2 weeks Follow up with the discharge clinic appointment within 7-14 days Follow up with primary care physician in 7-14 days Medications: Nifedipine 90 mg daily Rosuvastatin 20 mg daily Aspirin 81 mg daily Discharge Statement: "Patient was advised to return to the ER or call 911 if any headaches, dizziness, shortness of breath, chest pain, abdominal pain, bleeding, fevers, or worsening of medical condition. Patient was counseled about treatment plan, medications, possible side effects, patientverbalized understanding. All questions were answered to the best of my ability. This discharge took greater then 30 minutes in planning, reviewing documentation, counseling the patient, and discussing with other team members." ASSESSMENT ASSESSMENT Assessment Chest pain, ruled out ACS likely secondary to hypertensive emergency Hypertensive heart disease Hypertensive emergency Uncontrolled hypertension. Acute cystitis FRANCOIS likely intrinsic due to hypertension emergency Asthma-controlled History of right-sided internal capsule non hemorrhagic CVA 2017 - not on aspirin Dyslipidemia Prediabetes COLETTE SOARES RESIDENT Sep 13, 2024 17:06
[2024-09-14 10:07] LABS: Anti-Nuclear Antibody Direct Negative (Negative)
[2024-09-16 08:35] LABS: Hepatitis B Surface Antigen Negative (Negative)
[2024-09-16 08:57] LABS: Hepatitis C Antibody Negative (Negative)
== END 2024-09-13 18:33 | disposition home or self-care (01) | DRG 199 ==
LOC: ER 16:22 → TELE 21:45 → TELE-EAST 09-12 02:30
PROVIDERS: ADMIT Student in an Organized Health Care Education/Training Program; ATTEND Student in an Organized Health Care Education/Training Program
DX: I16.1 Hypertensive emergency (principal); N17.0 Acute kidney failure with tubular necrosis; I11.9 Hypertensive heart disease without heart failure; E78.5 Hyperlipidemia, unspecified; N30.00 Acute cystitis without hematuria; J45.909 Unspecified asthma, uncomplicated; Z86.73 Personal history of transient ischemic attack (TIA), and cerebral infarction without residual deficits; Z80.8 Family history of malignant neoplasm of other organs or systems; Z83.3 Family history of diabetes mellitus; Z82.49 Family history of ischemic heart disease and other diseases of the circulatory system; Z79.899 Other long term (current) drug therapy
CPT/HCPCS: 36415; 70450; 71045; 80048; 80053; 80307; 81001; 82306; 82570; 82607; 83036; 83605; 83880; 84156; 84300; 84439; 84443; 84481; 84484; 85025; 85610; 85730; 86038; 86803; 87340; 87426; 93005; 93306; 93976; 96365; 96375; 99291; G0378

== ENCOUNTER 2025-09-22 21:14 | Emergency (ER) | payer MEDICAID ==
[~2025-09-22] VITALS: Ht 152.4 cm; Wt 66.0 kg
[~2025-09-22 21:14] MED LIST changes: +ASPI-325 PO; -ATOR40TA52 PO; -BENA-36 PO; -LEVO500T91 PO; -MONT-8 PO; +PRAV20TA3 PO
--- NOTE | 2025-09-22 22:15 | DVH ---
CLINICAL INDICATION: left hand pain/dog bite TECHNIQUE: 3 views XY L HAND 3V XRAY Comparison: None FINDINGS: Comminuted intra-articular fracture of the 4th metacarpal base. Marked associated soft tissue swelling, with small dorsal laceration. No additional identified fracture. Diffuse osteopenia. Mild polyarticular osteoarthrosis. IMPRESSION: Comminuted intra-articular 4th metacarpal base fracture. Marked soft tissue swelling with small laceration.
[2025-09-22] MEDS ORDERED: IBUP-1456 PO (22:26)
[2025-09-22] MEDS ORDERED: AMOX875T4 PO (22:26)
[2025-09-22] MEDS: ceFAZolin 1GM/50ML 50 ML IV ONE ×2 (22:30→23:00)
--- NOTE | 2025-09-22 22:32 | ED.PDOC ---
Musculoskeletal HPI Comments 55-year-old female presents to ER with complaints of dog bite to left hand x1 day. Patient reports that her [place] dog who is fully up-to-date on shots bit her on her left hand while she tried to break up a dog fight at 3:30 p.m. prior to arrival to ER and sustained laceration/puncture wounds to left hand. She reports 05/15 to left hand without radiation. States he is unsure when her last tetanus shot was and denies numbness/tingling, left wrist pain or any further symptoms/complaints Chief Complaint: Animal Bite Time Seen by MD: 21:25 Primary Care Provider: VENESSA Reviewed Notes: Nurses Notes, Medications, Allergies Allergies: Coded Allergies: NO KNOWN ALLERGIES (Unverified , 02/28/18) Home Meds Active Scripts Ibuprofen (Ibuprofen) 800 Mg Tab, 1 TAB PO TID PRN, #30 TAB 0 Refills Prov:TOM CAREY 09/22/25 Amoxicillin & Pot Clavulanate (Amoxicillin/Potassium Cla) 875 Mg Tab, 1 TAB PO BID for 10 Days, #20 TAB 0 Refills Prov:TOM CAREY 09/22/25 Pravastatin Sodium (PRAVACHOL TABLET) 20 Mg Tb, 80 MG PO HS for 30 Days, #120 TAB Prov:TYRON SARABIA [facility] 09/13/24 Nifedipine (Nifedipine Er) 30 Mg Tab, 90 MG PO DAILY for 30 Days, #90 TAB Prov:TYRON SARABIA [facility] 09/13/24 Aspirin (Aspirin Low Dose) 81 Mg Tab, 81 MG PO DAILY for 30 Days, #30 TAB [facility] 09/13/24 Nifedipine (Nifedipine Er) 30 Mg Tab, 2 TAB PO DAILY, #60 TAB 3 Refills Prov:JUSTO GALINDO MD 08/19/23 Information Source: Patient Mode of Arrival: Ambulatory Past Medical History PAST MEDICAL HISTORY: CVA, High Lipids, HTN Surgical History: SPECIAL SKILLS OFFICER History: No Pertinent SPECIAL SKILLS OFFICER History Family History Family History: Unknown Social History Smoker: Non-Smoker Alcohol: Denies ETOH Use Drugs: Denies Drug Use Lives In: Home Constitutional: denies: chills, diaphoresis, fatigue, fever, malaise, sweats, weakness, others EENTM: denies: blurred vision, double vision, ear bleeding, ear discharge, ear drainage, ear pain, ear ringing, eye pain, eye redness, hearing loss, mouth pain, mouth swelling, nasal discharge, nose bleeding, nose congestion, nose pain, photophobia, tearing, throat pain, throat swelling, voice changes, others Respiratory: denies: cough, hemoptysis, orthopnea, SOB at rest, shortness of breath, SOB with excertion, stridor, wheezing, others Cardiovascular: denies: chest pain, dizzy spells, diaphoresis, Dyspnea on exertion, edema, irregular heart beat, left arm pain, lightheadedness, palpitations, PND, syncope, others Gastrointestinal: denies: abdomen distended, abdominal pain, blood streaked bowels, constipated, diarrhea, dysphagia, difficulty swallowing, hematemesis, melena, nausea, poor appetite, poor fluid intake, rectal bleeding, rectal pain, vomiting, others Genitourinary: denies: abnormal vagina bleeding, burning, dyspareunia, dysuria, flank pain, frequency, hematuria, incontinence, pain, , vagina discharge, urgency, others Neurological: denies: dizziness, fainting, headache, left sided numbness, left sided weakness, numbness, paresthesia, pre-existing deficit, right sided numbness, right sided weakness, seizure, speech problems, tingling, tremors, weakness, others Musculoskeletal: reports: others (As stated in HPI) Integumetry: reports: others (As stated in HPI) Allergic/Immunocompromised: denies: Difficulty Healing, Frequent Infections, Hives, Itching, others Hematologic/Lymphatic: denies: anemia, blood clots, easy bleeding, easy bruising, swollen glands, others Endocrine: denies: excessive hunger, excessive sweating, excessive thirst, excessive urination, flushing, intolerance to cold, intolerance to heat, unexplained weight gain, unexplained weight loss, others Psychiatric: denies: anxiety, bipolar disorder, depression, hopeless, panic disorder, schizophrenia, sleepless, suicidal, others Physical Exam General Appearance: No Apparent Distress HEENT: PERRL/EOMI Neck: Full Range of Motion, Non-Tender, Normal Respiratory: Chest Non-Tender, Lungs Clear, No Accessory Muscle Use, No Respiratory Distress, Normal Breath Sounds Cardiovascular: No Murmur, No Gallop, Regular Rate/Rhythm Breast Exam: Deferred Gastrointestinal: NOT DONE Genitalia: Deferred Pelvic: Deferred Rectal: Deferred Extremities: Normal capillary refill Neurologic: Alert, No Motor Deficits, Normal Affect, Normal Mood, No Sensory Deficits Cerebellar Function: Normal Reflexes: Normal Skin: Dry, Warm Peripheral Pulses: 2+ Radial (R), 2+ Radial (L), 2+ Brachial (R), 2+ Brachial (L) Lymphatic: No Adenopathy Was a procedure done? Was a procedure done?: Yes Sedation Sedation?: No Laceration Repair : Location Left hand Length 3 cm Anesthetic: Lidocaine (1%), Without epi Laceration Repair Prep: Saline, Betadine, by Irrigation (Heavily irrigated without any signs of foreign body) Laceration Repair Wound Comple: epidermis/dermis repair Laceration Repair: Number of sutures (3 placed - loosely approximated), Size (4-0), Nylon, Simple, Non-adherent gauze Informed consent obtained: Yes Risks, benefits, and alternati: Yes Images 1 - 3 cm laceration noted. Small puncture wounds <1 cm also noted to left hand without bleeding. Slight TTP/swelling/erythema localized to wound edges. No FB noted. Slight limitation on flexion to all fingers of left hand noted. Pulses intact 2 - TTP/moderate swelling noted to region of left 4th metacarpal. No laceration/open wound to left 4th metacarpal noted. No nailbed injury to all fingers of left hand noted Differential Diagnosis EXT Differential Diagnosis: Sprain, Dislocation, Neurovascular injury X-Ray, Labs, Meds, VS Vital Signs Date Time Temp Pulse Resp B/P (MAP) Pulse Ox O2 Delivery O2 Flow Rate FiO2 09/22/25 21:18 76.8 108 18 191/97 97 76.8 Current Medications Medications (Trade) Dose Ordered Sig/Valeriy Route Start Time Stop Time Status Last Admin Diphtheria/ Tetanus/Acell Pertussis (Boostrix T-Dap) 0.5 ml ONCE ONCE IM 09/22/25 22:30 09/22/25 22:31 DC 09/22/25 22:41 Ibuprofen (Motrin Tablet) 800 mg ONCE ONCE PO 09/22/25 22:30 09/22/25 22:31 DC 09/22/25 22:38 PATIENT: NUSRAT CASTILLO ACCT: [id number] UNIT: [id number] : 1970 LOC: ER ROOM / BED: / AGE / SEX: 55 / F ADM STATUS: REG ER SERVICE 24 ORDERING PHYSICIAN: TOM CAREY PROCEDURE(s): LHAN - L HAND 3V XRAY REASON: left hand pain/dog bite ORDER NUMBER(s): [id number], ACCESSION NUMBER(s): [id number] CLINICAL INDICATION: left hand pain/dog bite TECHNIQUE: 3 views XY L HAND 3V XRAY Comparison: None FINDINGS: Comminuted intra-articular fracture of the 4th metacarpal base. Marked associated soft tissue swelling, with small dorsal laceration. No additional identified fracture. Diffuse osteopenia. Mild polyarticular osteoarthrosis. IMPRESSION: Comminuted intra-articular 4th metacarpal base fracture. Marked soft tissue swelling with small laceration. ATED BY: SALO HERRERA MD DICTATED DATE/TIME: 09/22/252211 SIGNED BY: SALO HERRERA MD SIGNED DATE/TIME: 09/22/252211 CC: Left hand x-ray reviewed Wound cleaning performed at bedside Hep-Lock IV ordered Ancef 2 mg IV ordered Tdap 0.5 mL IM ordered Ibuprofen 800 mg p.o. ordered Boxer's splint applied Patient neurovascularly intact and reported improvement in symptoms prior to discharge Advised on elevation and alternate ice on/off as needed for pain/swelling Wound care/cleaning discussed and advised Advised to follow up in two days for wound check Advised to follow up in 10-14 days for removal of sutures Advised to follow up with PCP and orthopedic hand specialist in 1-2 days Patient verbalized understanding and agreeable with current plan of care Advised to return to ER immediately if symptoms worsen Images Reviewed?: Images reviewed and evaluated by me Time of 1ST Reevaluation: 22:04 Reevaluation 1ST: N/A Patient Education/Counseling: Diagnosis, Treatment, Prognosis, Need For Follow Up Family Education/Counseling: No Family Present Departure 1 Departure Time of Disposition: 22:24 Impression: Primary Impression: Metacarpal bone fracture Qualified Codes: S62.305B - Unspecified fracture of fourth metacarpal bone, left hand, initial encounter for open fracture Additional Impressions: Dog bite of left hand Qualified Codes: S61.452A - Open bite of left hand, initial encounter; W54.0XXA - Bitten by dog, initial encounter Laceration of left hand Qualified Codes: S61.412A - Laceration without foreign body of left hand, initial encounter Disposition: HOME / SELF CARE / HOMELESS Condition: Stable e-Prescriptions Ibuprofen (Ibuprofen) 800 Mg Tab 1 TAB PO TID PRN, #30 TAB 0 Refills Prov: TOM CAREY 09/22/25 Amoxicillin & Pot Clavulanate (Amoxicillin/Potassium Cla) 875 Mg Tab 1 TAB PO BID for 10 Days, #20 TAB 0 Refills Prov: TOM CAREY 09/22/25 Discharged With: Friend Critical Care Note Critical Care Time?: No Stability Stability form required: No Heart Score Heart Score: Heart Score Response (Comments) Value History N/A 0 EKG N/A 0 Age N/A 0 Risk Factors N/A 0 Troponin N/A 0 Total 0 TOM CAREY Sep 22, 2025 22:32
[2025-09-22] MEDS: IBUPROFEN 800 MG TAB PO ONE (22:38)
[2025-09-22] MEDS: TETANUS-DIPTH-ACEL PERTUSSIS 0.5ML SYR Tdap IM ONE (22:41)
[2025-09-22 22:50] VITALS: BP 191/97; PULSE 108; RESP 18; TEMP 96.8; O2SAT 97
== END 2025-09-23 01:19 | disposition home or self-care (01) ==
LOC: ER 21:14
DX: S61.412A Laceration without foreign body of left hand, initial encounter (principal); S61.452A Open bite of left hand, initial encounter; S62.305A Unspecified fracture of fourth metacarpal bone, left hand, initial encounter for closed fracture; E78.5 Hyperlipidemia, unspecified; I10 Essential (primary) hypertension; Z79.899 Other long term (current) drug therapy; Z86.73 Personal history of transient ischemic attack (TIA), and cerebral infarction without residual deficits; Z79.82 Long term (current) use of aspirin; Z23 Encounter for immunization; W54.0XXA Bitten by dog, initial encounter; Y93.89 Activity, other specified; Y92.89 Other specified places as the place of occurrence of the external cause; Y99.8 Other external cause status
CPT/HCPCS: 12002; 29125; 73130; 90471; 90715; 96365; 99284; A4649; J0690; 96366